=== PATIENT | female | born 1985 | race Two or more races ===

== ENCOUNTER 2019-01-17 22:40 | Emergency (ER) | payer SELFPAY ==
--- NOTE | 2019-01-17 22:47 | EDM.PDOC ---
ED HPI GENERAL MEDICAL PROBLEM - General Chief Complaint: General Stated Complaint: SOB 5 WEEKS PREG DIZZY LIGHTHEADED Time Seen by Provider: 01/17/19 22:46 - History of Present Illness INITIAL COMMENTS - FREE TEXT/NARRATIVE: 33-year-old female who is now 5 weeks she is a 5 para 31 miscarriage. She presents with episode of lightheadedness and dizziness. Patient was sitting on the sofa watching TV and felt warm and flushed and dizzy she felt her heart beating a little faster than normal this resolved on its own. She is feeling okay at the time of arrival to the emergency department. She otherwise has no medical problems. She will be establishing with an OB here at the [facility] and is ready on vitamins. She's had a little bit of cramping no contractions. - Related Data Allergies Allergy/AdvReac Type Severity Reaction Status Date / Time No Known Allergies Allergy Verified 01/17/19 22:54 Home Meds: Home Meds . [No Known Home Meds] 01/17/19 [History] ED ROS GENERAL - Review of Systems Review Of Systems: See Below Constitutional: Reports: No Symptoms HEENT: Reports: No Symptoms Respiratory: Reports: No Symptoms Cardiovascular: Reports: No Symptoms GI/Abdominal: Reports: No Symptoms : Reports: No Symptoms Musculoskeletal: Reports: No Symptoms Skin: Reports: No Symptoms Neurological: Reports: Dizziness. Denies: No Symptoms Psychiatric: Reports: No Symptoms ED EXAM - Physical Exam Exam: See Below Exam Limited By: No Limitations General Appearance: Alert, No Apparent Distress Eye Exam: Bilateral Eye: Normal Inspection Ears: Normal External Exam, Normal Canal, Hearing Grossly Normal, Normal TMs, Other (He has lots of cerumen in both canals both TMs visualized adequately) Nose: Normal Inspection, Normal Mucosa, No Blood Throat/Mouth: Normal Inspection, Normal Lips, Normal Teeth, Normal Gums, Normal Oropharynx, Normal Voice, No Airway Compromise Head: Atraumatic, Normocephalic Neck: Normal Inspection, Supple, Non-Tender, Full Range of Motion. No: Lymphadenopathy (L), Lymphadenopathy (R) Respiratory/Chest: No Respiratory Distress, Lungs Clear, Normal Breath Sounds Cardiovascular: Regular Rate, Rhythm, No Edema, No Murmur GI/Abdominal Exam: Normal Bowel Sounds, Soft, Non-Tender Back Exam: Normal Inspection. No: CVA Tenderness (L), CVA Tenderness (R) Extremities: Normal Inspection, No Pedal Edema Neurological: Alert, Oriented, Normal Cognition Course - Vital Signs Last Recorded V/S: Last Vital Signs Temp 36.3 C 01/17/19 22:51 Pulse 84 01/17/19 22:51 Resp 18 01/17/19 22:51 BP 154/75 H 01/17/19 22:51 Pulse Ox 100 01/17/19 22:51 - Orders/Labs/Meds Orders: Active Orders 24 hr Category Date Time Status PATIENT RETYPE [BBK] Routine Lab 01/18/19 00:10 Ordered Labs: Laboratory Tests 01/17/19 01/17/19 01/17/19 Range/Units 23:10 23:10 23:10 WBC 13.37 H (3.98-10.04) K/mm3 RBC 4.07 (3.98-5.22) M/mm3 Hgb 11.7 (11.2-15.7) gm/dl Hct 35.9 (34.1-44.9) % MCV 88.2 (79.4-94.8) fl MCH 28.7 (25.6-32.2) pg MCHC 32.6 (32.2-35.5) g/dl RDW Std Deviation 40.9 (36.4-46.3) fL Plt Count 320 (182-369) K/mm3 MPV 9.5 (9.4-12.3) fl Neutrophils % (Manual) 57 (40-60) % Band Neutrophils % 2 (0-10) % Lymphocytes % (Manual) 35 (20-40) % Atypical Lymphs % 0 % Monocytes % (Manual) 4 (2-10) % Eosinophils % (Manual) 2 (0.7-5.8) % Basophils % (Manual) 0 L (0.1-1.2) Toxic Granulation 1+ slight Platelet Estimate Adequate Plt Morphology Comment Normal RBC Morph Comment Normal Sodium 140 (136-145) mEq/L Potassium 3.3 L (3.5-5.1) mEq/L Chloride 103 (98-107) mEq/L Carbon Dioxide 26 (21-32) mEq/L Anion Gap 14.3 (5-15) BUN 13 (7-18) mg/dL Creatinine 0.7 (0.55-1.02) mg/dL Est Cr Clr Drug Dosing TNP Estimated GFR (MDRD) > 60 (>60) mL/min BUN/Creatinine Ratio 18.6 H (14-18) Glucose 157 H (74-106) mg/dL Calcium 9.1 (8.5-10.1) mg/dL Total Bilirubin 0.2 (0.2-1.0) mg/dL AST 19 (15-37) U/L ALT 30 (14-59) U/L Alkaline Phosphatase 85 (46-116) U/L Total Protein 7.3 (6.4-8.2) g/dl Albumin 3.6 (3.4-5.0) g/dl Globulin 3.7 gm/dL Albumin/Globulin Ratio 1.0 (1-2) HCG, Quant 1697.0 mIU/mL Urine Color (Yellow) Urine Appearance (Clear) Urine pH (5.0-8.0) Ur Specific [place] (1.005-1.030) Urine Protein (Negative) Urine Glucose (UA) (Negative) Urine Ketones (Negative) Urine Occult Blood (Negative) Urine Nitrite (Negative) Urine Bilirubin (Negative) Urine Urobilinogen (0.2-1.0) Ur Leukocyte Esterase (Negative) Urine RBC (0-5) /hpf Urine WBC (0-5) /hpf Ur Squamous Epith Cells (0-5) /hpf Urine Bacteria (FEW) /hpf Hyaline Casts (0-5) /lpf Urine Mucus (FEW) /hpf Blood Type Gel Antibody Screen 01/17/19 01/17/19 Range/Units 23:10 23:30 WBC (3.98-10.04) K/mm3 RBC (3.98-5.22) M/mm3 Hgb (11.2-15.7) gm/dl Hct (34.1-44.9) % MCV (79.4-94.8) fl MCH (25.6-32.2) pg MCHC (32.2-35.5) g/dl RDW Std Deviation (36.4-46.3) fL Plt Count (182-369) K/mm3 MPV (9.4-12.3) fl Neutrophils % (Manual) (40-60) % Band Neutrophils % (0-10) % Lymphocytes % (Manual) (20-40) % Atypical Lymphs % % Monocytes % (Manual) (2-10) % Eosinophils % (Manual) (0.7-5.8) % Basophils % (Manual) (0.1-1.2) Toxic Granulation Platelet Estimate Plt Morphology Comment RBC Morph Comment Sodium (136-145) mEq/L Potassium (3.5-5.1) mEq/L Chloride (98-107) mEq/L Carbon Dioxide (21-32) mEq/L Anion Gap (5-15) BUN (7-18) mg/dL Creatinine (0.55-1.02) mg/dL Est Cr Clr Drug Dosing Estimated GFR (MDRD) (>60) mL/min BUN/Creatinine Ratio (14-18) Glucose (74-106) mg/dL Calcium (8.5-10.1) mg/dL Total Bilirubin (0.2-1.0) mg/dL AST (15-37) U/L ALT (14-59) U/L Alkaline Phosphatase (46-116) U/L Total Protein (6.4-8.2) g/dl Albumin (3.4-5.0) g/dl Globulin gm/dL Albumin/Globulin Ratio (1-2) HCG, Quant mIU/mL Urine Color Yellow (Yellow) Urine Appearance Slt cloudy H (Clear) Urine pH 6.0 (5.0-8.0) Ur Specific [place] > or = 1.030 (1.005-1.030) Urine Protein Negative (Negative) Urine Glucose (UA) Negative (Negative) Urine Ketones Negative (Negative) Urine Occult Blood Negative (Negative) Urine Nitrite Negative (Negative) Urine Bilirubin Negative (Negative) Urine Urobilinogen 1.0 (0.2-1.0) Ur Leukocyte Esterase Trace H (Negative) Urine RBC 0-5 (0-5) /hpf Urine WBC 5-10 H (0-5) /hpf Ur Squamous Epith Cells 10-20 H (0-5) /hpf Urine Bacteria Moderate H (FEW) /hpf Hyaline Casts 0-5 (0-5) /lpf Urine Mucus Many H (FEW) /hpf Blood Type B POSITIVE Gel Antibody Screen Negative Meds: Medications Discontinued Medications Generic Name Dose Route Start Last Admin Trade Name Freq PRN Reason Stop Dose Admin Lactated Ringer's 1,000 mls @ 999 mls/hr 01/17/19 23:05 01/17/19 23:19 Ringers, Lactated IV 01/18/19 00:05 999 mls/hr .BOLUS ONE Administration Potassium Chloride 40 meq 01/18/19 00:22 01/18/19 00:31 Klor-Con M20 PO 01/18/19 00:23 40 meq ONETIME ONE Administration - Re-Assessments/Exams Free Text/Narrative Re-Assessment/Exam: 01/18/19 00:35 Patient has done fine here in the emergency department received a liter of fluid her potassium was little low so we'll give her 40 mEq oral before she goes home she like to go home and get some rest at this point. Departure - Departure Time of Disposition: 00:36 Disposition: Home, Self-Care 01 Clinical Impression: Episode of dizziness - Discharge Information Referrals: PCP,None [Primary Care Provider] - Forms: ED Department Discharge Additional Instructions: Return to emergency room with any questions problems or worsening symptoms. Follow-up with OB as scheduled. Push plenty of fluids. - My Orders Last 24 Hours: My Active Orders 01/18/19 00:10 PATIENT RETYPE [BBK] Routine - Assessment/Plan Last 24 Hours: My Active Orders 01/18/19 00:10 PATIENT RETYPE [BBK] Routine
[2019-01-17] MEDS ORDERED: Lactated Ringers 1,000 ML IV ONE (23:05)
[2019-01-18] MEDS ORDERED: Potassium Chloride 20 MEQ Tab.ER PO ONE (00:22)
== END 2019-01-18 00:42 | disposition home or self-care (01) ==
LOC: JD.ED 22:40
DX: O99.89 Other specified diseases and conditions complicating pregnancy, childbirth and the puerperium (principal); R42 Dizziness and giddiness; Z3A.01 Less than 8 weeks gestation of pregnancy
CPT/HCPCS: 36415; 80053; 81001; 84702; 85007; 85027; 86850; 86900; 86901; 96360; 99284; A9270; J7120; 99283

== ENCOUNTER 2019-03-06 23:45 | Emergency (ER) | payer OTHER, SELFPAY ==
--- NOTE | 2019-03-07 02:39 | EDM.PDOC ---
ED HPI GENERAL MEDICAL PROBLEM - General Chief Complaint: Respiratory Problem Stated Complaint: FLU SYMPTOMS/12 WKS Time Seen by Provider: 03/07/19 00:15 Source of Information: Reports: Patient History Limitations: Reports: No Limitations - History of Present Illness INITIAL COMMENTS - FREE TEXT/NARRATIVE: TRIAGE NOTE -- Pt has been having cold and flu symptoms for 4 days, nasal congestion, runny nose, sore throat, headache and chills, stated she had a elevated temp today. Took Tylenol and Robitussin 4 hours ago. [ End ] Above noted. Patient is 12 weeks . She is getting adequate care. She has had recurrent tonsillitis. No other risk factors are identified. Per primary complaint is her sore throat. 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 ED EXAM, GENERAL - Physical Exam Exam: See Below Exam Limited By: No Limitations General Appearance: Alert, WD/WN Eye Exam: Bilateral Eye: EOMI, PERRL Ears: Normal External Exam Nose: Normal Inspection Throat/Mouth: Other (Posterior pharynx is quite erythematous. Tonsils are enlarged. No asymmetry no exudate.) Head: Atraumatic, Normocephalic Neck: Normal Inspection, Supple Respiratory/Chest: No Respiratory Distress, Lungs Clear Cardiovascular: Regular Rate, Rhythm GI/Abdominal: Soft, Non-Tender Back Exam: Normal Inspection Extremities: Normal Inspection Neurological: Alert, Oriented Psychiatric: Normal Affect, Normal Mood Skin Exam: Warm, Dry Course - Vital Signs Text/Narrative:: Patient is positive for influenza B. Strep test is negative. However in light of the patient's history of tonsillitis and her really uncomfortable throat and enlarged tonsils she is being treated with Rocephin in the ER followed by Augmentin as outpatient. She is to report this visit to her field administrative assistant and arrange follow-up as directed. Last Recorded V/S: Last Vital Signs Temp 36.4 C 03/06/19 23:59 Pulse 79 03/06/19 23:59 Resp 18 03/06/19 23:59 BP 125/83 03/06/19 23:59 Pulse Ox 99 03/06/19 23:59 - Orders/Labs/Meds Orders: Active Orders 24 hr Category Date Time Status CULTURE STREP A CONFIRMATION [] Stat Lab 03/07/19 00:20 Results STREP SCRN A RAPID W CULT CONF [] Stat Lab 03/07/19 00:20 Results cefTRIAXone 1 GM with Lidocaine 1% 2.1 ML IM Med 03/07/19 02:45 Ordered cefTRIAXone [Rocephin] 1 gm Lidocaine 1% [Xylocaine 1%] 2.1 ml IM Q24H Medication Orders Ceftriaxone Sodium 1 gm/ (Lidocaine HCl 2.1 ml) 0 gm IM Q24H [facility] Meds: Medications Generic Name Dose Route Start Last Admin Trade Name Freq PRN Reason Stop Dose Admin Ceftriaxone Sodium 1 gm/ 0 gm 03/07/19 02:45 Lidocaine HCl 2.1 ml IM Q24H [facility] Departure - Departure Time of Disposition: 02:36 Disposition: Home, Self-Care 01 Condition: Good Clinical Impression: Tonsillitis with influenza, Influenza B, First trimester - Discharge Information Prescriptions: Amoxicillin/Potassium Clav [Augmentin 875-125 Tablet] 1 each PO Q12H #20 tablet Referrals: PCP,None [Primary Care Provider] - Additional Instructions: You tested positive for influenza B. You have been sick for about 4 days so an antiviral would not be of any benefit. You cannot take an antiviral as in any event. You have a history of chronic and recurrent tonsillitis and because your throat is so inflamed and your tonsils enlarged you are being treated for that. You received Rocephin in the emergency department and your prescription at home is for Augmentin. Report this visit to your field administrative assistant and arrange follow-up as directed. Return to ER for any worsening of symptoms, lethargy, decreased urine output, lack of brisk resolution of symptoms. Sepsis Event Note - Evaluation Sepsis Screening Result: No Definite Risk - Focused Exam Vital Signs: Vital Signs Temp Pulse Resp BP Pulse Ox 03/06/19 23:59 36.4 C 79 18 125/83 99 Date Exam was Performed: 03/07/19 Time Exam was Performed: 02:32 - My Orders Last 24 Hours: My Active Orders 03/07/19 02:45 cefTRIAXone 1 GM with Lidocaine 1% 2.1 ML IM cefTRIAXone [Rocephin] 1 gm Lidocaine 1% [Xylocaine 1%] 2.1 ml IM Q24H - Assessment/Plan Last 24 Hours: My Active Orders 03/07/19 02:45 cefTRIAXone 1 GM with Lidocaine 1% 2.1 ML IM cefTRIAXone [Rocephin] 1 gm Lidocaine 1% [Xylocaine 1%] 2.1 ml IM Q24H
[2019-03-07] MEDS ORDERED: cefTRIAXone 1 GM, Lidocaine 1% 2.1 ML IM SCH ×2 (02:45)
== END 2019-03-07 02:50 | disposition home or self-care (01) ==
LOC: JD.ED 23:45
DX: O99.511 Diseases of the respiratory system complicating pregnancy, first trimester (principal); J10.1 Influenza due to other identified influenza virus with other respiratory manifestations; Z3A.12 12 weeks gestation of pregnancy
CPT/HCPCS: 87077; 87081; 87430; 87804; 96372; 99283; J0696; J2001

== ENCOUNTER 2019-07-25 21:52 | Emergency (ER) | payer MEDICAID, OTHER ==
--- NOTE | 2019-07-25 22:29 | EDM.PDOC ---
ED HPI GENERAL MEDICAL PROBLEM - General Chief Complaint: Headache Stated Complaint: HEADACHE/HEART PALPATATIONS Time Seen by Provider: 07/25/19 22:06 Source of Information: Reports: Patient History Limitations: Reports: No Limitations - History of Present Illness INITIAL COMMENTS - FREE TEXT/NARRATIVE: Mrs. Smith is a 33-year-old woman with no chronic medical issues, but who is approximately 32 weeks gestation with her 5th , , with an CHRIST of 09/18/2019, who states that she was diagnosed with gestational diabetes and has been started on insulin, who now presents the ED stating that she developed intermittent rapid palpitations and a headache yesterday, 07/24/2019. She states that her headache is felt bitemporally and along the left side of her head. She is unable to describe its character. She states that she developed similar feeling headaches early in her , but that they went away. She does not otherwise have a history of headaches. She states that she has had some blurry vision on and off for the past 2 to 3 weeks, but denies recent nausea. She has been taking Tylenol for her headache. Here in the ED, the patient is found to be hemodynamically stable, afebrile, saturating 99% on room air. The patient denies recent fever, chills, sore throat, ear pain, nasal or sinus congestion, cough, dyspnea, chest pain, nausea, vomiting, constipation, diarrhea , abdominal pain, urinary symptoms, recent bloody bowel movements or black bowel movements, recent joint aches, headaches, or rashes. The patient's PCP is YOUSIF [facility]eno. Her Cement Mixer Driver is Dr. Yesenia Fong. 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 (x 1) : 5 Para: 3 Endocrine/Metabolic History: Reports: Diabetes, Gestational, Obesity/BMI 30+ - Past Surgical History Female Surgical History: Reports: Breast Implant Social & Family History - Family History Family Medical History: Noncontributory - Tobacco Use Smoking Status *Q: Never Smoker Second Hand Smoke Exposure: No - Caffeine Use Caffeine Use: Reports: None - Alcohol Use Alcohol Use History: Yes Alcohol Use Frequency: Rarely - Recreational Drug Use Recreational Drug Use: No - Living Situation & Occupation Living situation: Reports: , with Spouse, with Family (3 kids) Occupation: Unemployed ED ROS GENERAL - Review of Systems Review Of Systems: Comprehensive ROS is negative, except as noted in HPI. ED EXAM, GENERAL - Physical Exam Exam: See Below Exam Limited By: No Limitations General Appearance: Alert, WD/WN, No Apparent Distress Eye Exam: Bilateral Eye: EOMI, Normal Inspection, PERRL Ears: Normal External Exam, Normal Canal, Hearing Grossly Normal, Normal TMs Nose: Normal Inspection, Normal Mucosa, No Blood Throat/Mouth: Normal Inspection, Normal Lips, Normal Teeth, Normal Gums, Normal Oropharynx, Normal Voice, No Airway Compromise Head: Atraumatic, Normocephalic Neck: Normal Inspection, Supple, Non-Tender, Full Range of Motion Respiratory/Chest: No Respiratory Distress, Lungs Clear, Normal Breath Sounds, No Accessory Muscle Use Cardiovascular: Normal Peripheral Pulses, Regular Rate, Rhythm, No Gallop, No JVD, No Murmur, No Rub Peripheral Pulses: 4+: Radial (L), Radial (R) GI/Abdominal: Normal Bowel Sounds, Soft, Non-Tender, No Organomegaly, No Distention, No Abnormal Bruit, No Mass, Mass (Gravid uterus consistent with dates) (Female) Exam: Deferred Rectal (Female) Exam: Deferred Back Exam: Normal Inspection, Full Range of Motion, NT Extremities: Normal Inspection, Normal Range of Motion, No Pedal Edema, Normal Capillary Refill Neurological: Alert, Oriented, CN II-XII Intact, Normal Cognition, No Motor/ Sensory Deficits Psychiatric: Normal Affect Skin Exam: Warm, Dry, Intact, Normal Color, No Rash EKG INTERPRETATION EKG Date: 07/25/19 Time: 22:27 Rhythm: NSR Rate (Beats/Min): 93 [place]: Normal P-Wave: Present QRS: Normal ST-T: Normal QT: Normal Comparison: NA - No Prior EKG Course - Vital Signs Last Recorded V/S: Last Vital Signs Temp 36.8 C 07/25/19 22:01 Pulse 94 07/25/19 22:01 Resp 20 07/25/19 22:01 BP 126/90 07/25/19 22:01 Pulse Ox 99 07/25/19 22:01 - Orders/Labs/Meds Orders: Active Orders 24 hr Category Date Time Status EKG Documentation Completion [RC] STAT Care 07/25/19 22:21 Active Heart Rate [RC] Click to Edit Care 07/25/19 22:23 Active Labs: Laboratory Tests 07/25/19 07/25/19 Range/Units 22:40 22:40 WBC 11.79 H (3.98-10.04) K/mm3 RBC 3.71 L (3.98-5.22) M/mm3 Hgb 10.7 L (11.2-15.7) gm/dl Hct 33.2 L (34.1-44.9) % MCV 89.5 (79.4-94.8) fl MCH 28.8 (25.6-32.2) pg MCHC 32.2 (32.2-35.5) g/dl RDW Std Deviation 42.4 (36.4-46.3) fL Plt Count 252 (182-369) K/mm3 MPV 10.2 (9.4-12.3) fl Neutrophils % (Manual) 64 H (40-60) % Band Neutrophils % 0 (0-10) % Lymphocytes % (Manual) 28 (20-40) % Atypical Lymphs % 0 % Monocytes % (Manual) 5 (2-10) % Eosinophils % (Manual) 3 (0.7-5.8) % Basophils % (Manual) 0 L (0.1-1.2) Platelet Estimate Adequate RBC Morph Comment Normal Sodium 138 (136-145) mEq/L Potassium 3.6 (3.5-5.1) mEq/L Chloride 106 (98-107) mEq/L Carbon Dioxide 22 (21-32) mEq/L Anion Gap 13.6 (5-15) BUN 13 (7-18) mg/dL Creatinine 0.6 (0.55-1.02) mg/dL Est Cr Clr Drug Dosing 135.79 mL/min Estimated GFR (MDRD) > 60 (>60) mL/min BUN/Creatinine Ratio 21.7 H (14-18) Glucose 128 H (74-106) mg/dL Calcium 9.2 (8.5-10.1) mg/dL Magnesium 1.6 L (1.8-2.4) mg/dl Total Bilirubin 0.1 L (0.2-1.0) mg/dL AST 12 L (15-37) U/L ALT 21 (14-59) U/L Alkaline Phosphatase 110 (46-116) U/L Total Protein 6.4 (6.4-8.2) g/dl Albumin 2.5 L (3.4-5.0) g/dl Globulin 3.9 gm/dL Albumin/Globulin Ratio 0.6 L (1-2) TSH 3rd Generation 1.161 (0.358-3.74) uIU/mL Meds: Medications Discontinued Medications Generic Name Dose Route Start Last Admin Trade Name Freq PRN Reason Stop Dose Admin Acetaminophen 650 mg 07/25/19 23:57 07/26/19 00:00 Tylenol PO 07/25/19 23:58 650 mg NOW ONE Administration Magnesium Sulfate 2 gm/ Premix 50 mls @ 25 mls/hr 07/25/19 23:36 07/25/19 23: 53 IV 07/26/19 00:01 Not Given ONETIME ONE - Re-Assessments/Exams Free Text/Narrative Re-Assessment/Exam: 07/25/19 22:24 As above, the patient has been experiencing intermittent rapid palpitations and a headache since yesterday. She is not experiencing palpitations at this time, and her case monitor reflects a normal sinus rhythm. I have ordered a work -up that includes blood work and an ECG. With respect to her headache, her neurologic examination is completely normal, and that, combined with her , essentially disqualifies her for an emergency CT scan of her head. Lastly, although the patient has no complaints of abdominal pain or vaginal bleeding, I have ordered heart tones. 07/25/19 22:45 heart tones are 136 bpm. 07/25/19 23:37 The patient's CBC is remarkable for a WBC count elevated at 11.79, but with 0% bandemia. Her H/H is mildly depressed at 10.7/33.2, with the remainder of her CBC being unremarkable. Her CMP is remarkable for a blood glucose elevated at 128, with the remainder of her CMP being unremarkable. Her magnesium level is depressed at 1.6. Her TSH is within normal limits at 1.161. Based on the above, I have ordered a 2 g Mg-rider. 07/25/19 23:57 Lab results discussed with the patient. The patient does not want to wait to get the Mg-rider, and she is upset that her is not permitted back. It seems that she does not believe that she needs the magnesium; she stated that she had lab work done last week, and no one told her that her magnesium was low then. Of course, I have no idea what labs were even checked last week - we do not have access to the [place] lab results. She asked if she could replace her magnesium orally, and I explained that I would not be able to tell her how much oral magnesium she would need to take in order to replace her serum magnesium deficit, and that oral magnesium tends to cause diarrhea, which is why we replace it by IV in the ED. The patient stated that she would prefer to follow- up with her Commercial Loan Coordinator as opposed to getting the IV magnesium here, therefore I will cancel the order. The patient requested Tylenol for her headache, which she will be given. I am told that because the patient is over 20 weeks gestation, even though she does not have an OB issue, she is to go from here to OB. Departure - Departure Time of Disposition: 00:02 Disposition: Home, Self-Care 01 Condition: Good Clinical Impression: Headache, Rapid palpitations, Third trimester - Discharge Information *PRESCRIPTION DRUG MONITORING PROGRAM REVIEWED*: Not Applicable *COPY OF PRESCRIPTION DRUG MONITORING REPORT IN PATIENT ANTOINETTE: Not Applicable Instructions: Third Trimester of , [id number], Palpitations, Easy-to -Read, General Headache Without Cause, [id number] Referrals: Melissa Reid PA-C [Ordering Only Provider] - Yesenia Fong MD [Physician] - Forms: ED Department Discharge Additional Instructions: You were seen in the emergency room for intermittent rapid palpitations and a headache since yesterday. Work-up in the ER included blood work, heart tones, and an ECG. Your work-up found your magnesium level to be low at 1.6. Replacement IV magnesium was recommended, but declined. The remainder of your work-up was unremarkable. No cardiac abnormalities were found. As discussed, the only safe medicine that you may take for your headache is over -the-counter acetaminophen (Tylenol). We recommend that you follow-up with your Commercial Loan Coordinator, Dr. Yesenia Fong, at the next available appointment. If any other problems, please do not hesitate to return to the ER. Sepsis Event Note - Evaluation Sepsis Screening Result: No Definite Risk - Focused Exam Vital Signs: Vital Signs Temp Pulse Resp BP Pulse Ox 07/25/19 22:01 36.8 C 94 20 126/90 99 Date Exam was Performed: 07/26/19 Time Exam was Performed: 00:43 - My Orders Last 24 Hours: My Active Orders 07/25/19 22:21 EKG Documentation Completion [RC] STAT 07/25/19 22:23 Heart Rate [RC] Click to Edit - Assessment/Plan Last 24 Hours: My Active Orders 07/25/19 22:21 EKG Documentation Completion [RC] STAT 07/25/19 22:23 Heart Rate [RC] Click to Edit
[2019-07-25] MEDS ORDERED: Magnesium Sulfate/Water 2 GM in Premix Bag 1 BAG IV ONE (23:36)
[2019-07-25] MEDS ORDERED: Acetaminophen 325 MG Tab PO ONE (23:57)
== END 2019-07-26 00:20 | disposition home or self-care (01) ==
LOC: JD.ED 21:52
DX: O99.89 Other specified diseases and conditions complicating pregnancy, childbirth and the puerperium (principal); R51 Headache; R00.2 Palpitations; Z88.6 Allergy status to analgesic agent; O99.213 Obesity complicating pregnancy, third trimester; Z68.42 Body mass index [BMI] 45.0-49.9, adult; Z3A.32 32 weeks gestation of pregnancy
CPT/HCPCS: 36415; 80053; 83735; 84443; 85007; 85027; 93005; 99285; A9270; 93010; 99282

== ENCOUNTER 2019-09-03 07:07 | Inpatient (IN) | payer MEDICAID, OTHER ==
[2019-09-03] MEDS ORDERED: Sodium Chloride 0.9% 10 ML Syringe FLUSH PRN (07:21)
[2019-09-03] MEDS ORDERED: Nalbuphine 10 MG/ML Syringe IVPUSH PRN (07:21)
[2019-09-03] MEDS ORDERED: Misoprostol 25 MCG (1/4 of 100 MCG) Tab VAG ONE (07:30)
[2019-09-03] MEDS ORDERED: Lactated Ringers 1,000 ML IV SCH (07:30)
[2019-09-03] MEDS ORDERED: Misoprostol 25 MCG (1/4 of 100 MCG) Tab ONE (08:01)
[2019-09-03] MEDS ORDERED: diphenhydrAMINE 50 MG/ML SDV IVPUSH PRN (10:11)
[2019-09-03] MEDS ORDERED: ePHEDrine 50 MG/ML SDV IVPUSH PRN (10:11)
--- NOTE | 2019-09-03 10:51 | PCM.PREANE ---
Preanesthetic Assessment - Procedure Proposed Procedure: juliette - Anesthesia/Transfusion/Family Hx Anesthesia History: Prior Anesthesia Without Reaction Family History of Anesthesia Reaction: No Transfusion History: No Prior Transfusion(s) - Review of Systems General: No Symptoms Pulmonary: No Symptoms Cardiovascular: No Symptoms Gastrointestinal: No Symptoms Neurological: No Symptoms Other: Reports: Diabetes (gestational) - Physical Assessment Vital Signs: Last Vital Signs Temp 97.6 F 09/03/19 07:59 Pulse 88 09/03/19 07:59 Resp BP 158/96 H 09/03/19 07:59 Pulse Ox Height: 5 ft 8 in Weight: 139.888 kg ASA Class: 3 Mental Status: Alert & Oriented x3 Airway Class: Mallampati = 1 Dentition: Reports: Normal Dentition Thyro-Mental Finger Breadths: 3 Mouth Opening Finger Breadths: 3 ROM/Head Extension: Full Lungs: Clear to Auscultation, Normal Respiratory Effort Cardiovascular: Regular Rate, Regular Rhythm - Lab Values: Laboratory Last Values WBC 12.07 K/mm3 (3.98-10.04) H 09/03/19 07:40 RBC 4.02 M/mm3 (3.98-5.22) 09/03/19 07:40 Hgb 11.7 gm/dl (11.2-15.7) 09/03/19 07:40 Hct 36.0 % (34.1-44.9) 09/03/19 07:40 MCV 89.6 fl (79.4-94.8) 09/03/19 07:40 MCH 29.1 pg (25.6-32.2) 09/03/19 07:40 MCHC 32.5 g/dl (32.2-35.5) 09/03/19 07:40 RDW Std Deviation 43.2 fL (36.4-46.3) 09/03/19 07:40 Plt Count 247 K/mm3 (182-369) 09/03/19 07:40 MPV 11.1 fl (9.4-12.3) 09/03/19 07:40 Neut % (Auto) 64.6 % (34.0-71.1) 09/03/19 07:40 Lymph % (Auto) 26.5 % (19.3-51.7) 09/03/19 07:40 [place] % (Auto) 7.2 % (4.7-12.5) 09/03/19 07:40 Eos % (Auto) 0.8 (0.7-5.8) 09/03/19 07:40 Baso % (Auto) 0.2 % (0.1-1.2) 09/03/19 07:40 Neut # (Auto) 7.80 K/mm3 (1.56-6.13) H 09/03/19 07:40 Lymph # (Auto) 3.20 K/mm3 (1.18-3.74) 09/03/19 07:40 [place] # (Auto) 0.87 K/mm3 (0.24-0.36) H 09/03/19 07:40 Eos # (Auto) 0.10 K/mm3 (0.04-0.36) 09/03/19 07:40 Baso # (Auto) 0.02 K/mm3 (0.01-0.08) 09/03/19 07:40 BUN 11 mg/dL (7-18) 09/03/19 07:40 Creatinine 0.6 mg/dL (0.55-1.02) 09/03/19 07:40 Est Cr Clr Drug Dosing 135.79 mL/min 09/03/19 07:40 Estimated GFR (MDRD) > 60 mL/min (>60) 09/03/19 07:40 Uric Acid 4.8 mg/dL (2.6-6.0) 09/03/19 07:40 AST 14 U/L (15-37) L 09/03/19 07:40 ALT 14 U/L (14-59) 09/03/19 07:40 Lactate Dehydrogenase 150 U/L (81-234) 09/03/19 07:40 SARS-CoV-2 RNA (RT-PCR) Negative (NEGATIVE) 09/03/19 08:55 - Allergies Allergies/Adverse Reactions: Allergies Allergy/AdvReac Type Severity Reaction Status Date / Time ketorolac [From Toradol] Allergy Severe Facial Verified 09/03/19 08:39 Swelling - Blood Blood Available: No - Acknowledgements Anesthesia Type Planned: Epidural Pt an Appropriate Candidate for the Planned Anesthesia: Yes Alternatives and Risks of Anesthesia Discussed w Pt/Guardian: Yes Pt/Guardian Understands and Agrees with Anesthesia Plan: Yes PreAnesthesia Questionnaire - Past Health History Medical/Surgical History: Denies Medical/Surgical History Cardiovascular History: Reports: None Respiratory History: Reports: None Gastrointestinal History: Reports: GERD (with preg- much better now) 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: , Spontaneous : 5 Para: 3 Endocrine/Metabolic History: Reports: Diabetes, Gestational, Obesity/BMI 30+ Oncologic (Cancer) History: Reports: None - Past Surgical History Female Surgical History: Reports: Breast Implant - SUBSTANCE USE Smoking Status *Q: Never Smoker Tobacco Use Within Last Twelve Months: No Second Hand Smoke Exposure: No Days Per Week of Alcohol Use: 0 Recreational Drug Use History: No - HOME MEDS Home Medications: Home Meds Insulin Detemir [Levemir] 16 units SUBCUT BEDTIME 07/25/19 [History] Vits #93/Iron Fum/FA [ Formula Tablet] 1 tab PO DAILY 07/25/19 [History] Omeprazole 20 mg PO DAILY #60 tablet. 08/06/19 [Rx] - CURRENT (IN HOUSE) MEDS Current Meds: Current Medications Diphenhydramine HCl (Benadryl) 25 mg IVPUSH Q6H PRN PRN Reason: pruritis Ephedrine Sulfate (Ephedrine Sulfate) 5 mg IVPUSH ASDIRECTED PRN PRN Reason: Hypotension Fentanyl (Sublimaze) 100 mcg EPIDUR Q3H PRN PRN Reason: Pain Fentanyl/Bupivacaine HCl (Fentanyl/Bupivacaine/Ns 2 Mcg-0.125% 100 Ml) 100 ml EPIDUR ASDIRECTED PRN PRN Reason: Pain Lactated Ringer's (Ringers, Lactated) 1,000 mls @ 100 mls/hr IV ASDIRECTED GERMAINE Oxytocin/Lactated Ringer's (Pitocin In Lr 10 Units/1,000 Ml) 10 unit in 1,000 mls @ 12 mls/hr IV TITRATE GERMAINE; Protocol Lactated Ringer's (Ringers, Lactated) 1,000 mls @ 40 mls/hr IV ASDIRECTED GERMAINE Nalbuphine HCl (Nubain) 10 mg IVPUSH Q2H PRN PRN Reason: Pain Sodium Chloride (Saline Flush) 10 ml FLUSH ASDIRECTED PRN PRN Reason: Keep Vein Open Discontinued Medications Misoprostol (Cytotec) 50 mcg VAG ONETIME ONE Stop: 09/03/19 07:31 Last Admin: 09/03/19 08:00 Dose: 50 mcg Documented by: Misoprostol (Cytotec) Confirm Administered Dose 25 mcg .ROUTE .[facility] ONE Stop: 09/03/19 08:02 Last Admin: 09/03/19 10:16 Dose: Not Given Documented by:
[2019-09-03] MEDS: Lactated Ringers 1,000 ML IV SCH ×2 (12:07→13:38)
[2019-09-03] MEDS: Oxytocin/Lactated Ringers 10 UNIT/1,000 ML BAG IV SCH (12:07)
[2019-09-03] MEDS: Bupivacaine/fentaNYL/NS 100 ML Bag EPIDUR PRN ×2 (13:55→22:00)
[2019-09-03] MEDS: fentaNYL 100 MCG/2 ML SDV EPIDUR PRN ×2 (13:56→22:36)
--- NOTE | 2019-09-03 17:00 | PCM.LDHP ---
L&D History of Present Illness - General Date of Service: 09/03/19 Admit Problem/Dx: Patient Status Order with Admit Dx/Problem 09/03/19 07:21 Patient Status [ADT] Routine Admission Diagnosis/Problem Admission Diagnosis/Problem Source of Information: Patient - History of Present Illness Introduction:: 33 year old at 38w here for induction of labor for poorly controlled gestational diabetes. Here for induction of labor Pain Score: 8 - Related Data Allergies/Adverse Reactions: Allergies Allergy/AdvReac Type Severity Reaction Status Date / Time ketorolac [From Toradol] Allergy Severe Facial Verified 09/03/19 08:39 Swelling Home Medications: Home Meds Insulin Detemir [Levemir] 16 units SUBCUT BEDTIME 07/25/19 [History] Vits #93/Iron Fum/FA [ Formula Tablet] 1 tab PO DAILY 07/25/19 [History] Omeprazole 20 mg PO DAILY #60 tablet. 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 Endocrine/Metabolic History: Reports: Diabetes, Gestational, Obesity/BMI 30+ Oncologic (Cancer) History: Reports: None - Past Surgical History Female Surgical History: Reports: Breast Implant Social & Family History - Family History Family Medical History: Noncontributory - Tobacco Use Smoking Status *Q: Never Smoker Second Hand Smoke Exposure: No - Caffeine Use Caffeine Use: Reports: None - Alcohol Use Days Per Week of Alcohol Use: 0 - Recreational Drug Use Recreational Drug Use: No - Living Situation & Occupation Living situation: Reports: , with Spouse, with Family (3 kids) Occupation: Unemployed H&P Review of Systems - Review of Systems: Review Of Systems: See Below General: Reports: No Symptoms HEENT: Reports: No Symptoms Pulmonary: Reports: No Symptoms Cardiovascular: Reports: No Symptoms Gastrointestinal: Reports: No Symptoms Genitourinary: Reports: No Symptoms Musculoskeletal: Reports: No Symptoms Skin: Reports: No Symptoms Psychiatric: Reports: No Symptoms Neurological: Reports: No Symptoms Hematologic/Lymphatic: Reports: No Symptoms Immunologic: Reports: No Symptoms L&D Exam - Exam Exam: See Below - Vital Signs Vital Signs: Last Vital Signs Temp 36.4 C 09/03/19 07:59 Pulse 88 09/03/19 07:59 Resp BP 158/96 H 09/03/19 07:59 Pulse Ox Weight: 139.888 kg - OB Specific Contraction Intensity: Moderate Movement: Active Heart Tones: Present Heart Rate (FHR) Variability: Moderate (6-25 bmp) Presentation: Vertex - Brian Score Brian Score Cervix Position: Midposition Brian Score Consistency: Soft Brian Score Effacement: 51-70% Brian Score Dilation: 1-2 cm Brian Score 's Station: -3 Brian Score Total: 6 - Exam General: Alert, Oriented HEENT: PERRLA, Conjunctiva Clear, EACs Clear, EOMI, Hearing Intact, Mucosa Moist & [place], Nares Patent, Normal Nasal Septum, Posterior Pharynx Clear, TMs Clear Neck: Supple, Trachea Midline Lungs: Clear to Auscultation, Normal Respiratory Effort Cardiovascular: Regular Rate, Regular Rhythm GI/Abdominal Exam: Normal Bowel Sounds, Soft, Non-Tender, No Organomegaly, No Distention, No Abnormal Bruit, No Mass, Pelvis Stable Back Exam: Normal Inspection, Full Range of Motion Extremities: Normal Inspection, Normal Range of Motion, Non-Tender, No Pedal Edema, Normal Capillary Refill Skin: Warm, Dry, Intact Neurological: Cranial Nerves Intact, Reflexes Equal Bilateral Psychiatric: Alert, Normal Affect, Normal Mood - Patient Data Lab Results Last 24 hrs: Laboratory Results - last 24 hr 09/03/19 09/03/19 09/03/19 Range/Units 07:40 07:40 08:55 WBC 12.07 H (3.98-10.04) K/mm3 RBC 4.02 (3.98-5.22) M/mm3 Hgb 11.7 (11.2-15.7) gm/dl Hct 36.0 (34.1-44.9) % MCV 89.6 (79.4-94.8) fl MCH 29.1 (25.6-32.2) pg MCHC 32.5 (32.2-35.5) g/dl RDW Std Deviation 43.2 (36.4-46.3) fL Plt Count 247 (182-369) K/mm3 MPV 11.1 (9.4-12.3) fl Neut % (Auto) 64.6 (34.0-71.1) % Lymph % (Auto) 26.5 (19.3-51.7) % [place] % (Auto) 7.2 (4.7-12.5) % Eos % (Auto) 0.8 (0.7-5.8) Baso % (Auto) 0.2 (0.1-1.2) % Neut # (Auto) 7.80 H (1.56-6.13) K/mm3 Lymph # (Auto) 3.20 (1.18-3.74) K/mm3 [place] # (Auto) 0.87 H (0.24-0.36) K/mm3 Eos # (Auto) 0.10 (0.04-0.36) K/mm3 Baso # (Auto) 0.02 (0.01-0.08) K/mm3 BUN 11 (7-18) mg/dL Creatinine 0.6 (0.55-1.02) mg/dL Est Cr Clr Drug Dosing 135.79 mL/min Estimated GFR (MDRD) > 60 (>60) mL/min POC Glucose (70-105) mg/dL Uric Acid 4.8 (2.6-6.0) mg/dL AST 14 L (15-37) U/L ALT 14 (14-59) U/L Lactate Dehydrogenase 150 (81-234) U/L Ur Random Creatinine (30.0-125.0) mg/dL U Random Total Protein (0.0-11.8) mg/dL Protein/Creatinin Ratio SARS-CoV-2 RNA (RT-PCR) Negative (NEGATIVE) 09/03/19 09/03/19 Range/Units 09:30 15:52 WBC (3.98-10.04) K/mm3 RBC (3.98-5.22) M/mm3 Hgb (11.2-15.7) gm/dl Hct (34.1-44.9) % MCV (79.4-94.8) fl MCH (25.6-32.2) pg MCHC (32.2-35.5) g/dl RDW Std Deviation (36.4-46.3) fL Plt Count (182-369) K/mm3 MPV (9.4-12.3) fl Neut % (Auto) (34.0-71.1) % Lymph % (Auto) (19.3-51.7) % [place] % (Auto) (4.7-12.5) % Eos % (Auto) (0.7-5.8) Baso % (Auto) (0.1-1.2) % Neut # (Auto) (1.56-6.13) K/mm3 Lymph # (Auto) (1.18-3.74) K/mm3 [place] # (Auto) (0.24-0.36) K/mm3 Eos # (Auto) (0.04-0.36) K/mm3 Baso # (Auto) (0.01-0.08) K/mm3 BUN (7-18) mg/dL Creatinine (0.55-1.02) mg/dL Est Cr Clr Drug Dosing mL/min Estimated GFR (MDRD) (>60) mL/min POC Glucose 77 (70-105) mg/dL Uric Acid (2.6-6.0) mg/dL AST (15-37) U/L ALT (14-59) U/L Lactate Dehydrogenase (81-234) U/L Ur Random Creatinine 55.0 (30.0-125.0) mg/dL U Random Total Protein < 6.0 (0.0-11.8) mg/dL Protein/Creatinin Ratio TNP SARS-CoV-2 RNA (RT-PCR) (NEGATIVE) Result Diagrams: 09/03/19 07:40 09/03/19 07:40 Problem List Initiated/Reviewed/Updated: Yes Orders Last 24hrs: Active Orders 24 hr Category Date Time Status Patient Status [ADT] Routine ADT 09/03/19 07:21 Active Activity as Tolerated [RC] PFP Care 09/03/19 07:21 Active Blood Glucose Check, Bedside [RC] Q4HR Care 09/03/19 07:21 Active Communication Order [RC] ASDIRECTED Care 09/03/19 07:21 Active Communication Order [RC] ASDIRECTED Care 09/03/19 07:21 Active Communication Order [RC] ASDIRECTED Care 09/03/19 07:21 Active Communication Order [RC] ASDIRECTED Care 09/03/19 07:21 Active Heart Tones [RC] ASDIRECTED Care 09/03/19 07:22 Active Monitoring [RC] INTERMITTENT Care 09/03/19 07:21 Active Non Stress Test [RC] PER UNIT ROUTINE Care 09/03/19 07:21 Active Notify Provider [RC] ASDIRECTED Care 09/03/19 07:21 Active Notify Provider [RC] ASDIRECTED Care 09/03/19 10:11 Active Notify Provider [RC] PFP Care 09/03/19 07:21 Active Notify Provider [RC] PRN Care 09/03/19 07:21 Active Peripheral IV Care [RC] . DIRECTED Care 09/03/19 07:22 Active Vaginal Exam [RC] ASDIRECTED Care 09/03/19 07:21 Active Consistent Carbohydrate Diet [DIET] Diet 09/03/19 Lunch Active CBC W/O DIFF,HEMOGRAM [HEME] AM Lab 09/04/19 05:11 Ordered RAPID PLASMA REAGIN,RPR [CHEM] Routine Lab 09/03/19 07:40 Received TYPE AND SCREEN [BBK] AM Lab 09/04/19 05:11 Ordered Bupivacaine/fentaNYL/NS [fentaNYL/Bupivacaine/NS 2 MCG- Med 09/03/19 10:11 Active 0.125% 100 ML] 100 ml EPIDUR ASDIRECTED PRN Lactated Ringers [Ringers, Lactated] 1,000 ml Med 09/03/19 07:30 Active IV ASDIRECTED Lactated Ringers [Ringers, Lactated] 1,000 ml Med 09/03/19 07:30 Active IV ASDIRECTED Nalbuphine [Nubain] Med 09/03/19 07:21 Active 10 mg IVPUSH Q2H PRN Oxytocin/Lactated Ringers [Pitocin in LR 10 Units/1,000 Med 09/03/19 07:30 Active ML] 10 unit in 1,000 ml IV TITRATE Sodium Chloride 0.9% [Saline Flush] Med 09/03/19 07:21 Active 10 ml FLUSH ASDIRECTED PRN diphenhydrAMINE [Benadryl] Med 09/03/19 10:11 Active 25 mg IVPUSH Q6H PRN ePHEDrine [ePHEDrine sulfate] Med 09/03/19 10:11 Active 5 mg IVPUSH ASDIRECTED PRN fentaNYL [Sublimaze] Med 09/03/19 10:11 Active 100 mcg EPIDUR Q3H PRN Electronic Heart Tones Ext w TOCO [WOMSER] Ot 09/03/19 07:21 Ordered Routine Electronic Heart Tones Internal [WOMSER] Per Unit Ot 09/03/19 07:21 Ordered Routine PIH Panel [OM.PC] Stat Ot 09/03/19 09:18 Ordered Peripheral IV Insertion Adult [OM.PC] Routine Ot 09/03/19 07:21 Ordered Peripheral IV Insertion Adult [OM.PC] Routine Ot 09/03/19 07:21 Ordered Medication Orders Diphenhydramine HCl (Benadryl) 25 mg IVPUSH Q6H PRN PRN Reason: pruritis Ephedrine Sulfate (Ephedrine Sulfate) 5 mg IVPUSH ASDIRECTED PRN PRN Reason: Hypotension Fentanyl (Sublimaze) 100 mcg EPIDUR Q3H PRN PRN Reason: Pain Last Admin: 09/03/19 13:56 Dose: 100 mcg Documented by: [id number] Fentanyl/Bupivacaine HCl (Fentanyl/Bupivacaine/Ns 2 Mcg-0.125% 100 Ml) 100 ml EPIDUR ASDIRECTED PRN PRN Reason: Pain Last Admin: 09/03/19 13:55 Dose: 100 ml Documented by: [email or web address] Lactated Ringer's (Ringers, Lactated) 1,000 mls @ 100 mls/hr IV ASDIRECTED GERMAINE Last Admin: 09/03/19 13:38 Dose: 999 mls/hr Documented by: [id number] Infusion: 09/03/19 13:38 Dose: 999 mls/hr Documented by: [id number] Infusion: 09/03/19 13:00 Dose: 999 mls/hr Documented by: [id number] Admin: 09/03/19 12:07 Dose: 100 mls/hr Documented by: [id number] Oxytocin/Lactated Ringer's (Pitocin In Lr 10 Units/1,000 Ml) 10 unit in 1,000 mls @ 12 mls/hr IV TITRATE GERMAINE; Protocol Last Titration: 09/03/19 14:30 Dose: 10 munits/min, 60 mls/hr Documented by: [id number] Titration: 09/03/19 13:30 Dose: 8 munits/min, 48 mls/hr Documented by: [id number] Titration: 09/03/19 13:00 Dose: 6 munits/min, 36 mls/hr Documented by: [id number] Titration: 09/03/19 12:32 Dose: 4 munits/min, 24 mls/hr Documented by: [id number] Admin: 09/03/19 12:07 Dose: 2 munits/min, 12 mls/hr Documented by: [id number] Lactated Ringer's (Ringers, Lactated) 1,000 mls @ 40 mls/hr IV ASDIRECTED GERMAINE Nalbuphine HCl (Nubain) 10 mg IVPUSH Q2H PRN PRN Reason: Pain Sodium Chloride (Saline Flush) 10 ml FLUSH ASDIRECTED PRN PRN Reason: Keep Vein Open Assessment/Plan Comment:: Here for induction. Slightly elevated blood pressures - labs pending. GLucose checks q2 hours. Anesthesia per patient request.
--- NOTE | 2019-09-03 17:03 | PCM.PNLD ---
Labor Progress Note - VS & Meds Vital Signs: Last Vital Signs Temp 36.4 C 09/03/19 07:59 Pulse 88 09/03/19 07:59 Resp BP 158/96 H 09/03/19 07:59 Pulse Ox Active Medications: Current Medications Diphenhydramine HCl (Benadryl) 25 mg IVPUSH Q6H PRN PRN Reason: pruritis Ephedrine Sulfate (Ephedrine Sulfate) 5 mg IVPUSH ASDIRECTED PRN PRN Reason: Hypotension Fentanyl (Sublimaze) 100 mcg EPIDUR Q3H PRN PRN Reason: Pain Last Admin: 09/03/19 13:56 Dose: 100 mcg Documented by: Fentanyl/Bupivacaine HCl (Fentanyl/Bupivacaine/Ns 2 Mcg-0.125% 100 Ml) 100 ml EPIDUR ASDIRECTED PRN PRN Reason: Pain Last Admin: 09/03/19 13:55 Dose: 100 ml Documented by: Lactated Ringer's (Ringers, Lactated) 1,000 mls @ 100 mls/hr IV ASDIRECTED GERMAINE Last Admin: 09/03/19 13:38 Dose: 999 mls/hr Documented by: Oxytocin/Lactated Ringer's (Pitocin In Lr 10 Units/1,000 Ml) 10 unit in 1,000 mls @ 12 mls/hr IV TITRATE GERMAINE; Protocol Last Titration: 09/03/19 14:30 Dose: 10 munits/min, 60 mls/hr Documented by: Lactated Ringer's (Ringers, Lactated) 1,000 mls @ 40 mls/hr IV ASDIRECTED GERMAINE Nalbuphine HCl (Nubain) 10 mg IVPUSH Q2H PRN PRN Reason: Pain Sodium Chloride (Saline Flush) 10 ml FLUSH ASDIRECTED PRN PRN Reason: Keep Vein Open Discontinued Medications Misoprostol (Cytotec) 50 mcg VAG ONETIME ONE Stop: 09/03/19 07:31 Last Admin: 09/03/19 08:00 Dose: 50 mcg Documented by: Misoprostol (Cytotec) Confirm Administered Dose 25 mcg .ROUTE .[facility] ONE Stop: 09/03/19 08:02 Last Admin: 09/03/19 10:16 Dose: Not Given Documented by: - Uterine Contractions Contraction Intensity: Moderate - Monitoring Heart Rate (FHR) Variability: Moderate (6-25 bmp) - Vaginal Exam Dilation (cm): 1.5 Effacement (Percent): 50 Station: -3 - Labor Progress (Free Text) Labor Progress: AROM clear fluid.
--- NOTE | 2019-09-03 17:12 | PCM.PNLD ---
Labor Progress Note - VS & Meds Vital Signs: Last Vital Signs Temp 36.4 C 09/03/19 07:59 Pulse 88 09/03/19 07:59 Resp BP 158/96 H 09/03/19 07:59 Pulse Ox Active Medications: Current Medications Diphenhydramine HCl (Benadryl) 25 mg IVPUSH Q6H PRN PRN Reason: pruritis Ephedrine Sulfate (Ephedrine Sulfate) 5 mg IVPUSH ASDIRECTED PRN PRN Reason: Hypotension Fentanyl (Sublimaze) 100 mcg EPIDUR Q3H PRN PRN Reason: Pain Last Admin: 09/03/19 13:56 Dose: 100 mcg Documented by: Fentanyl/Bupivacaine HCl (Fentanyl/Bupivacaine/Ns 2 Mcg-0.125% 100 Ml) 100 ml EPIDUR ASDIRECTED PRN PRN Reason: Pain Last Admin: 09/03/19 13:55 Dose: 100 ml Documented by: Lactated Ringer's (Ringers, Lactated) 1,000 mls @ 100 mls/hr IV ASDIRECTED GERMAINE Last Admin: 09/03/19 13:38 Dose: 999 mls/hr Documented by: Oxytocin/Lactated Ringer's (Pitocin In Lr 10 Units/1,000 Ml) 10 unit in 1,000 mls @ 12 mls/hr IV TITRATE GERMAINE; Protocol Last Titration: 09/03/19 14:30 Dose: 10 munits/min, 60 mls/hr Documented by: Lactated Ringer's (Ringers, Lactated) 1,000 mls @ 40 mls/hr IV ASDIRECTED GERMAINE Nalbuphine HCl (Nubain) 10 mg IVPUSH Q2H PRN PRN Reason: Pain Sodium Chloride (Saline Flush) 10 ml FLUSH ASDIRECTED PRN PRN Reason: Keep Vein Open Discontinued Medications Misoprostol (Cytotec) 50 mcg VAG ONETIME ONE Stop: 09/03/19 07:31 Last Admin: 09/03/19 08:00 Dose: 50 mcg Documented by: Misoprostol (Cytotec) Confirm Administered Dose 25 mcg .ROUTE .[facility] ONE Stop: 09/03/19 08:02 Last Admin: 09/03/19 10:16 Dose: Not Given Documented by: - Uterine Contractions Contraction Intensity: Moderate - Monitoring Heart Rate (FHR) Variability: Moderate (6-25 bmp) - Vaginal Exam Dilation (cm): 4 Effacement (Percent): 80 Station: -3 Cervical Position: Midposition - Labor Progress (Free Text) Labor Progress: Active labor now. Progressing well. Two most recent blood sugars 77 and 72. Comfortable with epidural Will sign out to Dr. Quiñones.
[2019-09-03] MEDS ORDERED: Bupivacaine 0.25% 10 ML SDV ONE (18:00)
[2019-09-03] MEDS ORDERED: Lidocaine 2% with EPINEPHrine 1:200,000 20 ML SDV ONE (18:00)
[2019-09-03] MEDS ORDERED: Acetaminophen 325 MG Tab PO PRN (19:19)
--- NOTE | 2019-09-03 19:38 | PCM.SN.2 ---
- Free Text/Narrative Note: Cervical check. Cervix remains 5 cm dilated and has been 5 cm dilated since at least 1830 hrs. uterine pressure catheter (UPC) and heart tone electrode placed. Discussed the importance of cervical dilatation and progress during labor. Patient has not had a previous for the past 9 years. All of her pregnancies delivered 9 pound babies or greater with the largest being 9 pounds 6 ounces. Has been a gestational diabetic during this and Dr. Martins ordered insulin 4 doses daily. With the patient concerning section if necessary if no progress made by 930 to 10:00 tonight adequate contractions. Prefer vaginal liver if possible. Grade 1 heart rate tractions every 2 to 3 minutes.
--- NOTE | 2019-09-03 23:48 | PCM.DEL ---
L & D Note - General Info Date of Service: 09/03/19 - Delivery Note Labor: Augmented by ARM, Augmented by Oxytocin Cervical Ripening Method: Misoprostil Delivery Outcome: Livebirth (Female liveborn 09[birth year]03[birth year]2019 at 2329 hrs. 3660 g 8 pounds 1.1 ounce female Apgars 8/9 RONALD) Delivery Method: Spontaneous Vaginal Delivery-Single Infant Delivery Mode: Spontaneous Presentation: Right Occiput Anterior (RONALD) Nuchal Cord: None Prep: Povidone-Iodine (Betadine Anesthesia Type: Epidural Amniotic Fluid Description: Clear Episiotomy Type: None Laceration: None Placenta: Intact, Spontaneous (2333 hours on 09/03/2019) Cord: 3 Vessels Estimated Blood Loss: 250 Resuscitation Needed: No [place]: Suctioned, Bulb Syringe, Stimulated, Warmed, [place] Used, Warmer Used Provider: Que Quiñones Score 1 min: 8 Score 5 min: 9 Induction Criteria - Brian Score Brian Score Dilation: 1-2 cm Brian Score Effacement: 40-50% Brian Score 's Station: -2 Brian Score Consistency: Soft Brian Score Cervix Position: Posterior Brian Score Total: 5 Brian Score Presenting Part: Reports: Cephalic - Induction Gestational Age >/= 39 wks: No Medical Indication: Gestational diabetes on insulin Estimated Pelvis: Reports: Adequate Reassuring Monitoring Strip: Yes Absence of Tachy Systole: Yes - Augmentation Estimated Pelvis: Reports: Adequate Weight Estimated:: Reports: AGA Reassuring Monitoring Strip: Yes Absence of Tachy Systole: Yes - General Info Date of Service: 09/03/19 Functional Status: Reports: Pain Controlled - Review of Systems General: Reports: No Symptoms HEENT: Reports: No Symptoms Pulmonary: Reports: No Symptoms Cardiovascular: Reports: No Symptoms Gastrointestinal: Reports: No Symptoms Genitourinary: Reports: No Symptoms Musculoskeletal: Reports: No Symptoms Skin: Reports: No Symptoms Neurological: Reports: No Symptoms Psychiatric: Reports: No Symptoms - Patient Data Vitals - Most Recent: Last Vital Signs Temp 97.6 F 09/03/19 07:59 Pulse 88 09/03/19 07:59 Resp BP 158/96 H 09/03/19 07:59 Pulse Ox Weight - Most Recent: 308 lb 6.4 oz Lab Results Last 24 Hours: Laboratory Results - last 24 hr 09/03/19 09/03/19 09/03/19 Range/Units 07:40 07:40 08:55 WBC 12.07 H (3.98-10.04) K/mm3 RBC 4.02 (3.98-5.22) M/mm3 Hgb 11.7 (11.2-15.7) gm/dl Hct 36.0 (34.1-44.9) % MCV 89.6 (79.4-94.8) fl MCH 29.1 (25.6-32.2) pg MCHC 32.5 (32.2-35.5) g/dl RDW Std Deviation 43.2 (36.4-46.3) fL Plt Count 247 (182-369) K/mm3 MPV 11.1 (9.4-12.3) fl Neut % (Auto) 64.6 (34.0-71.1) % Lymph % (Auto) 26.5 (19.3-51.7) % Garza % (Auto) 7.2 (4.7-12.5) % Eos % (Auto) 0.8 (0.7-5.8) Baso % (Auto) 0.2 (0.1-1.2) % Neut # (Auto) 7.80 H (1.56-6.13) K/mm3 Lymph # (Auto) 3.20 (1.18-3.74) K/mm3 Garza # (Auto) 0.87 H (0.24-0.36) K/mm3 Eos # (Auto) 0.10 (0.04-0.36) K/mm3 Baso # (Auto) 0.02 (0.01-0.08) K/mm3 BUN 11 (7-18) mg/dL Creatinine 0.6 (0.55-1.02) mg/dL Est Cr Clr Drug Dosing 135.79 mL/min Estimated GFR (MDRD) > 60 (>60) mL/min POC Glucose (70-105) mg/dL Uric Acid 4.8 (2.6-6.0) mg/dL AST 14 L (15-37) U/L ALT 14 (14-59) U/L Lactate Dehydrogenase 150 (81-234) U/L Ur Random Creatinine (30.0-125.0) mg/dL U Random Total Protein (0.0-11.8) mg/dL Protein/Creatinin Ratio SARS-CoV-2 RNA (RT-PCR) Negative (NEGATIVE) 09/03/19 09/03/19 09/03/19 Range/Units 09:30 15:52 18:25 WBC (3.98-10.04) K/mm3 RBC (3.98-5.22) M/mm3 Hgb (11.2-15.7) gm/dl Hct (34.1-44.9) % MCV (79.4-94.8) fl MCH (25.6-32.2) pg MCHC (32.2-35.5) g/dl RDW Std Deviation (36.4-46.3) fL Plt Count (182-369) K/mm3 MPV (9.4-12.3) fl Neut % (Auto) (34.0-71.1) % Lymph % (Auto) (19.3-51.7) % Garza % (Auto) (4.7-12.5) % Eos % (Auto) (0.7-5.8) Baso % (Auto) (0.1-1.2) % Neut # (Auto) (1.56-6.13) K/mm3 Lymph # (Auto) (1.18-3.74) K/mm3 Garza # (Auto) (0.24-0.36) K/mm3 Eos # (Auto) (0.04-0.36) K/mm3 Baso # (Auto) (0.01-0.08) K/mm3 BUN (7-18) mg/dL Creatinine (0.55-1.02) mg/dL Est Cr Clr Drug Dosing mL/min Estimated GFR (MDRD) (>60) mL/min POC Glucose 77 81 (70-105) mg/dL Uric Acid (2.6-6.0) mg/dL AST (15-37) U/L ALT (14-59) U/L Lactate Dehydrogenase (81-234) U/L Ur Random Creatinine 55.0 (30.0-125.0) mg/dL U Random Total Protein < 6.0 (0.0-11.8) mg/dL Protein/Creatinin Ratio TNP SARS-CoV-2 RNA (RT-PCR) (NEGATIVE) 09/03/19 Range/Units 20:04 WBC (3.98-10.04) K/mm3 RBC (3.98-5.22) M/mm3 Hgb (11.2-15.7) gm/dl Hct (34.1-44.9) % MCV (79.4-94.8) fl MCH (25.6-32.2) pg MCHC (32.2-35.5) g/dl RDW Std Deviation (36.4-46.3) fL Plt Count (182-369) K/mm3 MPV (9.4-12.3) fl Neut % (Auto) (34.0-71.1) % Lymph % (Auto) (19.3-51.7) % Garza % (Auto) (4.7-12.5) % Eos % (Auto) (0.7-5.8) Baso % (Auto) (0.1-1.2) % Neut # (Auto) (1.56-6.13) K/mm3 Lymph # (Auto) (1.18-3.74) K/mm3 Garza # (Auto) (0.24-0.36) K/mm3 Eos # (Auto) (0.04-0.36) K/mm3 Baso # (Auto) (0.01-0.08) K/mm3 BUN (7-18) mg/dL Creatinine (0.55-1.02) mg/dL Est Cr Clr Drug Dosing mL/min Estimated GFR (MDRD) (>60) mL/min POC Glucose 80 (70-105) mg/dL Uric Acid (2.6-6.0) mg/dL AST (15-37) U/L ALT (14-59) U/L Lactate Dehydrogenase (81-234) U/L Ur Random Creatinine (30.0-125.0) mg/dL U Random Total Protein (0.0-11.8) mg/dL Protein/Creatinin Ratio SARS-CoV-2 RNA (RT-PCR) (NEGATIVE) Med Orders - Current: Current Medications Acetaminophen (Tylenol) 650 mg PO Q4H PRN PRN Reason: Headache Last Admin: 09/03/19 20:00 Dose: 650 mg Documented by: Diphenhydramine HCl (Benadryl) 25 mg IVPUSH Q6H PRN PRN Reason: pruritis Ephedrine Sulfate (Ephedrine Sulfate) 5 mg IVPUSH ASDIRECTED PRN PRN Reason: Hypotension Fentanyl (Sublimaze) 100 mcg EPIDUR Q3H PRN PRN Reason: Pain Last Admin: 09/03/19 22:36 Dose: 100 mcg Documented by: Fentanyl/Bupivacaine HCl (Fentanyl/Bupivacaine/Ns 2 Mcg-0.125% 100 Ml) 100 ml EPIDUR ASDIRECTED PRN PRN Reason: Pain Last Admin: 09/03/19 13:55 Dose: 100 ml Documented by: Lactated Ringer's (Ringers, Lactated) 1,000 mls @ 100 mls/hr IV ASDIRECTED GERMAINE Last Admin: 09/03/19 13:38 Dose: 999 mls/hr Documented by: Oxytocin/Lactated Ringer's (Pitocin In Lr 10 Units/1,000 Ml) 10 unit in 1,000 mls @ 12 mls/hr IV TITRATE GERMAINE; Protocol Last Titration: 09/03/19 18:30 Dose: 14 munits/min, 84 mls/hr Documented by: Lactated Ringer's (Ringers, Lactated) 1,000 mls @ 40 mls/hr IV ASDIRECTED GERMAINE Nalbuphine HCl (Nubain) 10 mg IVPUSH Q2H PRN PRN Reason: Pain Sodium Chloride (Saline Flush) 10 ml FLUSH ASDIRECTED PRN PRN Reason: Keep Vein Open Discontinued Medications Misoprostol (Cytotec) 50 mcg VAG ONETIME ONE Stop: 09/03/19 07:31 Last Admin: 09/03/19 08:00 Dose: 50 mcg Documented by: Misoprostol (Cytotec) Confirm Administered Dose 25 mcg .ROUTE .STK-MED ONE Stop: 09/03/19 08:02 Last Admin: 09/03/19 10:16 Dose: Not Given Documented by: - Exam General: Alert, Oriented HEENT: Pupils Equal, Mucous Membr. Moist/[place] (Female) Exam: Normal External Exam Extremities: Normal Inspection, Non-Tender, No Pedal Edema, Normal Capillary Refill Skin: Warm, Dry, Intact Psy/Mental Status: Alert, Normal Affect, Normal Mood - Problem List & Annotations (1) 37 weeks gestation of SNOMED Code(s): 64872608 Code(s): Z3A.37 - 37 WEEKS GESTATION OF Status: Acute Current Visit: Yes (2) Gestational diabetes mellitus (GDM) affecting fifth SNOMED Code(s): 10099280172403 Code(s): O24.419 - GESTATIONAL DIABETES MELLITUS IN , UNSP CONTROL; O09.40 - SUPERVISION OF W GRAND MULTIPARITY, UNSP TRIMESTER Status: Acute Current Visit: Yes (3) Normal delivery at term SNOMED Code(s): 67232327 Code(s): O80 - ENCOUNTER FOR FULL-TERM UNCOMPLICATED DELIVERY Status: Acute Current Visit: Yes - Problem List Review Problem List Initiated/Reviewed/Updated: No - My Orders Last 24 Hours: My Active Orders 09/03/19 19:19 Acetaminophen [Tylenol] 650 mg PO Q4H PRN - Assessment Assessment:: Normal spontaneous vaginal delivery stable - Plan Plan:: Here for induction. Slightly elevated blood pressures - labs pending. GLucose checks q2 hours. Anesthesia per patient request.
[2019-09-03] MEDS ORDERED: Witch Hazel Medicated Pads 40/Jar TOP PRN (23:55)
[2019-09-03] MEDS ORDERED: Docusate Sodium 100 MG Cap PO PRN (23:55)
[2019-09-03] MEDS ORDERED: Benzocaine/Menthol 20%-0.5% Spray 56 GM Canister TOP PRN (23:55)
[2019-09-04] MEDS: Oxytocin/Lactated Ringers 10 UNIT/1,000 ML BAG IV SCH (00:19)
[2019-09-04] MEDS: Ibuprofen 600 MG Tab PO PRN ×2 (02:22→16:33)
[2019-09-04] MEDS: Acetaminophen 325 MG Tab PO PRN ×3 (05:35→21:33)
--- NOTE | 2019-09-04 10:26 | PCM.SN.2 ---
- Free Text/Narrative Note: exam Afebrile, chest clear, uterus at umbilicus -1. No heavy vaginal bleeding. No leg cramping.
--- NOTE | 2019-09-04 11:54 | PCM48HPAN ---
Post Anesthesia Note - EVALUATION WITHIN 48HRS OF ANESTHETIC Vital Signs in Normal Range: Yes Patient Participated in Evaluation: Yes Respiratory Function Stable: Yes Airway Patent: Yes Cardiovascular Function Stable: Yes Hydration Status Stable: Yes Pain Control Satisfactory: Yes Nausea and Vomiting Control Satisfactory: Yes Mental Status Recovered: Yes Vital Signs: Last Vital Signs Temp 97.9 F 09/04/19 08:29 Pulse 84 09/04/19 08:29 Resp 16 09/04/19 08:29 BP 142/84 H 09/04/19 08:29 Pulse Ox 96 09/04/19 08:29 - COMMENTS/OBSERVATIONS Free Text/Narrative:: Patient is on her day 1. Denies any back pain, soreness, ambulating, no urinary retention.
[2019-09-05] MEDS: Ibuprofen 600 MG Tab PO PRN (00:31)
[2019-09-05] MEDS: Acetaminophen 325 MG Tab PO PRN (08:22)
--- NOTE | 2019-09-05 10:39 | PCM.DCSUM1 ---
Discharge Summary - Hospital Course Free Text/Narrative:: [place] [facility] L/D Delivery Note Patient Name: LOURDES KHANNA Date of : 87 Patient Status: Inpatient Attending Provider: Yesenia Fong Date: 09/03/19 23:42 Initialization Date: 09/03/19 23:42 L & D Note - General Info Date of Service: 09/03/19 - Delivery Note Labor: Augmented by ARM, Augmented by Oxytocin Cervical Ripening Method: Misoprostil Delivery Outcome: Livebirth (Female liveborn 09/03/2019 at 2329 hrs. 3660 g 8 pounds 1.1 ounce female Apgars 8/9 RONALD) Delivery Method: Spontaneous Vaginal Delivery-Single Infant Delivery Mode: Spontaneous Presentation: Right Occiput Anterior (RONALD) Nuchal Cord: None Prep: Povidone-Iodine (Betadine Anesthesia Type: Epidural Amniotic Fluid Description: Clear Episiotomy Type: None Laceration: None Placenta: Intact, Spontaneous (2333 hours on 09/03/2019) Cord: 3 Vessels Estimated Blood Loss: 250 Resuscitation Needed: No [place]: Suctioned, Bulb Syringe, Stimulated, Warmed, [place] Used, Warmer Used Provider: Que Quiñones Score 1 min: 8 Score 5 min: 9 Induction Criteria - Brian Score Brian Score Dilation: 1-2 cm Brian Score Effacement: 40-50% Brian Score 's Station: -2 Brian Score Consistency: Soft Brian Score Cervix Position: Posterior Brian Score Total: 5 Brian Score Presenting Part: Reports: Cephalic - Induction Gestational Age >/= 39 wks: No Medical Indication: Gestational diabetes on insulin Estimated Pelvis: Reports: Adequate Reassuring Monitoring Strip: Yes Absence of Tachy Systole: Yes - Augmentation Estimated Pelvis: Reports: Adequate Weight Estimated:: Reports: AGA Reassuring Monitoring Strip: Yes Absence of Tachy Systole: Yes - General Info Date of Service: 09/03/19 Functional Status: Reports: Pain Controlled - Review of Systems General: Reports: No Symptoms HEENT: Reports: No Symptoms Pulmonary: Reports: No Symptoms Cardiovascular: Reports: No Symptoms Gastrointestinal: Reports: No Symptoms Genitourinary: Reports: No Symptoms Musculoskeletal: Reports: No Symptoms Skin: Reports: No Symptoms Neurological: Reports: No Symptoms Psychiatric: Reports: No Symptoms - Patient Data Vitals - Most Recent: Last Vital Signs Temp 97.6 F 09/03/19 07:59 Pulse 88 09/03/19 07:59 Resp BP 158/96 H 09/03/19 07:59 Pulse Ox Weight - Most Recent: 308 lb 6.4 oz Lab Results Last 24 Hours: Laboratory Results - last 24 hr 09/03/19 09/03/19 09/03/19 Range/Units 07:40 07:40 08:55 WBC 12.07 H (3.98-10.04) K/mm3 RBC 4.02 (3.98-5.22) M/mm3 Hgb 11.7 (11.2-15.7) gm/dl Hct 36.0 (34.1-44.9) % MCV 89.6 (79.4-94.8) fl MCH 29.1 (25.6-32.2) pg MCHC 32.5 (32.2-35.5) g/dl RDW Std Deviation 43.2 (36.4-46.3) fL Plt Count 247 (182-369) K/mm3 MPV 11.1 (9.4-12.3) fl Neut % (Auto) 64.6 (34.0-71.1) % Lymph % (Auto) 26.5 (19.3-51.7) % [place] % (Auto) 7.2 (4.7-12.5) % Eos % (Auto) 0.8 (0.7-5.8) Baso % (Auto) 0.2 (0.1-1.2) % Neut # (Auto) 7.80 H (1.56-6.13) K/mm3 Lymph # (Auto) 3.20 (1.18-3.74) K/mm3 [place] # (Auto) 0.87 H (0.24-0.36) K/mm3 Eos # (Auto) 0.10 (0.04-0.36) K/mm3 Baso # (Auto) 0.02 (0.01-0.08) K/mm3 BUN 11 (7-18) mg/dL Creatinine 0.6 (0.55-1.02) mg/dL Est Cr Clr Drug Dosing 135.79 mL/min Estimated GFR (MDRD) > 60 (>60) mL/min POC Glucose (70-105) mg/dL Uric Acid 4.8 (2.6-6.0) mg/dL AST 14 L (15-37) U/L ALT 14 (14-59) U/L Lactate Dehydrogenase 150 (81-234) U/L Ur Random Creatinine (30.0-125.0) mg/dL U Random Total Protein (0.0-11.8) mg/dL Protein/Creatinin Ratio SARS-CoV-2 RNA (RT-PCR) Negative (NEGATIVE) 09/03/19 09/03/19 09/03/19 Range/Units 09:30 15:52 18:25 WBC (3.98-10.04) K/mm3 RBC (3.98-5.22) M/mm3 Hgb (11.2-15.7) gm/dl Hct (34.1-44.9) % MCV (79.4-94.8) fl MCH (25.6-32.2) pg MCHC (32.2-35.5) g/dl RDW Std Deviation (36.4-46.3) fL Plt Count (182-369) K/mm3 MPV (9.4-12.3) fl Neut % (Auto) (34.0-71.1) % Lymph % (Auto) (19.3-51.7) % [place] % (Auto) (4.7-12.5) % Eos % (Auto) (0.7-5.8) Baso % (Auto) (0.1-1.2) % Neut # (Auto) (1.56-6.13) K/mm3 Lymph # (Auto) (1.18-3.74) K/mm3 [place] # (Auto) (0.24-0.36) K/mm3 Eos # (Auto) (0.04-0.36) K/mm3 Baso # (Auto) (0.01-0.08) K/mm3 BUN (7-18) mg/dL Creatinine (0.55-1.02) mg/dL Est Cr Clr Drug Dosing mL/min Estimated GFR (MDRD) (>60) mL/min POC Glucose 77 81 (70-105) mg/dL Uric Acid (2.6-6.0) mg/dL AST (15-37) U/L ALT (14-59) U/L Lactate Dehydrogenase (81-234) U/L Ur Random Creatinine 55.0 (30.0-125.0) mg/dL U Random Total Protein < 6.0 (0.0-11.8) mg/dL Protein/Creatinin Ratio TNP SARS-CoV-2 RNA (RT-PCR) (NEGATIVE) 09/03/19 Range/Units 20:04 WBC (3.98-10.04) K/mm3 RBC (3.98-5.22) M/mm3 Hgb (11.2-15.7) gm/dl Hct (34.1-44.9) % MCV (79.4-94.8) fl MCH (25.6-32.2) pg MCHC (32.2-35.5) g/dl RDW Std Deviation (36.4-46.3) fL Plt Count (182-369) K/mm3 MPV (9.4-12.3) fl Neut % (Auto) (34.0-71.1) % Lymph % (Auto) (19.3-51.7) % [place] % (Auto) (4.7-12.5) % Eos % (Auto) (0.7-5.8) Baso % (Auto) (0.1-1.2) % Neut # (Auto) (1.56-6.13) K/mm3 Lymph # (Auto) (1.18-3.74) K/mm3 [place] # (Auto) (0.24-0.36) K/mm3 Eos # (Auto) (0.04-0.36) K/mm3 Baso # (Auto) (0.01-0.08) K/mm3 BUN (7-18) mg/dL Creatinine (0.55-1.02) mg/dL Est Cr Clr Drug Dosing mL/min Estimated GFR (MDRD) (>60) mL/min POC Glucose 80 (70-105) mg/dL Uric Acid (2.6-6.0) mg/dL AST (15-37) U/L ALT (14-59) U/L Lactate Dehydrogenase (81-234) U/L Ur Random Creatinine (30.0-125.0) mg/dL U Random Total Protein (0.0-11.8) mg/dL Protein/Creatinin Ratio SARS-CoV-2 RNA (RT-PCR) (NEGATIVE) Med Orders - Current: Current Medications Acetaminophen (Tylenol) 650 mg PO Q4H PRN PRN Reason: Headache Last Admin: 09/03/19 20:00 Dose: 650 mg Documented by: Diphenhydramine HCl (Benadryl) 25 mg IVPUSH Q6H PRN PRN Reason: pruritis Ephedrine Sulfate (Ephedrine Sulfate) 5 mg IVPUSH ASDIRECTED PRN PRN Reason: Hypotension Fentanyl (Sublimaze) 100 mcg EPIDUR Q3H PRN PRN Reason: Pain Last Admin: 09/03/19 22:36 Dose: 100 mcg Documented by: Fentanyl/Bupivacaine HCl (Fentanyl/Bupivacaine/Ns 2 Mcg-0.125% 100 Ml) 100 ml EPIDUR ASDIRECTED PRN PRN Reason: Pain Last Admin: 09/03/19 13:55 Dose: 100 ml Documented by: Lactated Ringer's (Ringers, Lactated) 1,000 mls @ 100 mls/hr IV ASDIRECTED GERMAINE Last Admin: 09/03/19 13:38 Dose: 999 mls/hr Documented by: Oxytocin/Lactated Ringer's (Pitocin In Lr 10 Units/1,000 Ml) 10 unit in 1,000 mls @ 12 mls/hr IV TITRATE GERMAINE; Protocol Last Titration: 09/03/19 18:30 Dose: 14 munits/min, 84 mls/hr Documented by: Lactated Ringer's (Ringers, Lactated) 1,000 mls @ 40 mls/hr IV ASDIRECTED GERMAINE Nalbuphine HCl (Nubain) 10 mg IVPUSH Q2H PRN PRN Reason: Pain Sodium Chloride (Saline Flush) 10 ml FLUSH ASDIRECTED PRN PRN Reason: Keep Vein Open Discontinued Medications Misoprostol (Cytotec) 50 mcg VAG ONETIME ONE Stop: 09/03/19 07:31 Last Admin: 09/03/19 08:00 Dose: 50 mcg Documented by: Misoprostol (Cytotec) Confirm Administered Dose 25 mcg .ROUTE .STK-MED ONE Stop: 09/03/19 08:02 Last Admin: 09/03/19 10:16 Dose: Not Given Documented by: - Exam General: Alert, Oriented HEENT: Pupils Equal, Mucous Membr. Moist/[place] (Female) Exam: Normal External Exam Extremities: Normal Inspection, Non-Tender, No Pedal Edema, Normal Capillary Refill Skin: Warm, Dry, Intact Psy/Mental Status: Alert, Normal Affect, Normal Mood - Problem List & Annotations (1) 37 weeks gestation of SNOMED Code(s): 11809266 Code(s): Z3A.37 - 37 WEEKS GESTATION OF Status: Acute Current Visit: Yes (2) Gestational diabetes mellitus (GDM) affecting fifth SNOMED Code(s): 47016796292778 Code(s): O24.419 - GESTATIONAL DIABETES MELLITUS IN , UNSP CONTROL; O09.40 - SUPERVISION OF W GRAND MULTIPARITY, UNSP TRIMESTER Status: Acute Current Visit: Yes (3) Normal delivery at term SNOMED Code(s): 56454059 Code(s): O80 - ENCOUNTER FOR FULL-TERM UNCOMPLICATED DELIVERY Status: Acute Current Visit: Yes - Problem List Review Problem List Initiated/Reviewed/Updated: No - My Orders Last 24 Hours: My Active Orders 09/03/19 19:19 Acetaminophen [Tylenol] 650 mg PO Q4H PRN - Assessment Assessment:: Normal spontaneous vaginal delivery stable - Plan Plan:: Here for induction. Slightly elevated blood pressures - labs pending. GLucose checks q2 hours. Anesthesia per patient request. HPI Initial Comments: [place] [facility] L/D Delivery Note Patient Name: LOURDES KHANNA Date of : 87 Patient Status: Inpatient Attending Provider: Yesenia Fong Date: 09/03/19 23:42 Initialization Date: 09/03/19 23:42 L & D Note - General Info Date of Service: 09/03/19 - Delivery Note Labor: Augmented by ARM, Augmented by Oxytocin Cervical Ripening Method: Misoprostil Delivery Outcome: Livebirth (Female liveborn 09/03/2019 at 2329 hrs. 3660 g 8 pounds 1.1 ounce female Apgars 8/9 RONALD) Infant Delivery Method: Spontaneous Vaginal Delivery-Single Infant Delivery Mode: Spontaneous Presentation: Right Occiput Anterior (RONALD) Nuchal Cord: None Prep: Povidone-Iodine (Betadine Anesthesia Type: Epidural Amniotic Fluid Description: Clear Episiotomy Type: None Laceration: None Placenta: Intact, Spontaneous (2333 hours on 09/03/2019) Cord: 3 Vessels Estimated Blood Loss: 250 Resuscitation Needed: No [place]: Suctioned, Bulb Syringe, Stimulated, Warmed, [place] Used, Warmer Used Provider: Que Quiñones Score 1 min: 8 Score 5 min: 9 Induction Criteria - Brian Score Brian Score Dilation: 1-2 cm Brian Score Effacement: 40-50% Brian Score Infant's Station: -2 Brian Score Consistency: Soft Brian Score Cervix Position: Posterior Brian Score Total: 5 Brian Score Presenting Part: Reports: Cephalic - Induction Gestational Age >/= 39 wks: No Medical Indication: Gestational diabetes on insulin Estimated Pelvis: Reports: Adequate Reassuring Monitoring Strip: Yes Absence of Tachy Systole: Yes - Augmentation Estimated Pelvis: Reports: Adequate Weight Estimated:: Reports: AGA Reassuring Monitoring Strip: Yes Absence of Tachy Systole: Yes - General Info Date of Service: 09/03/19 Functional Status: Reports: Pain Controlled - Review of Systems General: Reports: No Symptoms HEENT: Reports: No Symptoms Pulmonary: Reports: No Symptoms Cardiovascular: Reports: No Symptoms Gastrointestinal: Reports: No Symptoms Genitourinary: Reports: No Symptoms Musculoskeletal: Reports: No Symptoms Skin: Reports: No Symptoms Neurological: Reports: No Symptoms Psychiatric: Reports: No Symptoms - Patient Data Vitals - Most Recent: Last Vital Signs Temp 97.6 F 09/03/19 07:59 Pulse 88 09/03/19 07:59 Resp BP 158/96 H 09/03/19 07:59 Pulse Ox Weight - Most Recent: 308 lb 6.4 oz Lab Results Last 24 Hours: Laboratory Results - last 24 hr 09/03/19 09/03/19 09/03/19 Range/Units 07:40 07:40 08:55 WBC 12.07 H (3.98-10.04) K/mm3 RBC 4.02 (3.98-5.22) M/mm3 Hgb 11.7 (11.2-15.7) gm/dl Hct 36.0 (34.1-44.9) % MCV 89.6 (79.4-94.8) fl MCH 29.1 (25.6-32.2) pg MCHC 32.5 (32.2-35.5) g/dl RDW Std Deviation 43.2 (36.4-46.3) fL Plt Count 247 (182-369) K/mm3 MPV 11.1 (9.4-12.3) fl Neut % (Auto) 64.6 (34.0-71.1) % Lymph % (Auto) 26.5 (19.3-51.7) % [place] % (Auto) 7.2 (4.7-12.5) % Eos % (Auto) 0.8 (0.7-5.8) Baso % (Auto) 0.2 (0.1-1.2) % Neut # (Auto) 7.80 H (1.56-6.13) K/mm3 Lymph # (Auto) 3.20 (1.18-3.74) K/mm3 [place] # (Auto) 0.87 H (0.24-0.36) K/mm3 Eos # (Auto) 0.10 (0.04-0.36) K/mm3 Baso # (Auto) 0.02 (0.01-0.08) K/mm3 BUN 11 (7-18) mg/dL Creatinine 0.6 (0.55-1.02) mg/dL Est Cr Clr Drug Dosing 135.79 mL/min Estimated GFR (MDRD) > 60 (>60) mL/min POC Glucose (70-105) mg/dL Uric Acid 4.8 (2.6-6.0) mg/dL AST 14 L (15-37) U/L ALT 14 (14-59) U/L Lactate Dehydrogenase 150 (81-234) U/L Ur Random Creatinine (30.0-125.0) mg/dL U Random Total Protein (0.0-11.8) mg/dL Protein/Creatinin Ratio SARS-CoV-2 RNA (RT-PCR) Negative (NEGATIVE) 09/03/19 09/03/19 09/03/19 Range/Units 09:30 15:52 18:25 WBC (3.98-10.04) K/mm3 RBC (3.98-5.22) M/mm3 Hgb (11.2-15.7) gm/dl Hct (34.1-44.9) % MCV (79.4-94.8) fl MCH (25.6-32.2) pg MCHC (32.2-35.5) g/dl RDW Std Deviation (36.4-46.3) fL Plt Count (182-369) K/mm3 MPV (9.4-12.3) fl Neut % (Auto) (34.0-71.1) % Lymph % (Auto) (19.3-51.7) % [place] % (Auto) (4.7-12.5) % Eos % (Auto) (0.7-5.8) Baso % (Auto) (0.1-1.2) % Neut # (Auto) (1.56-6.13) K/mm3 Lymph # (Auto) (1.18-3.74) K/mm3 [place] # (Auto) (0.24-0.36) K/mm3 Eos # (Auto) (0.04-0.36) K/mm3 Baso # (Auto) (0.01-0.08) K/mm3 BUN (7-18) mg/dL Creatinine (0.55-1.02) mg/dL Est Cr Clr Drug Dosing mL/min Estimated GFR (MDRD) (>60) mL/min POC Glucose 77 81 (70-105) mg/dL Uric Acid (2.6-6.0) mg/dL AST (15-37) U/L ALT (14-59) U/L Lactate Dehydrogenase (81-234) U/L Ur Random Creatinine 55.0 (30.0-125.0) mg/dL U Random Total Protein < 6.0 (0.0-11.8) mg/dL Protein/Creatinin Ratio TNP SARS-CoV-2 RNA (RT-PCR) (NEGATIVE) 09/03/19 Range/Units 20:04 WBC (3.98-10.04) K/mm3 RBC (3.98-5.22) M/mm3 Hgb (11.2-15.7) gm/dl Hct (34.1-44.9) % MCV (79.4-94.8) fl MCH (25.6-32.2) pg MCHC (32.2-35.5) g/dl RDW Std Deviation (36.4-46.3) fL Plt Count (182-369) K/mm3 MPV (9.4-12.3) fl Neut % (Auto) (34.0-71.1) % Lymph % (Auto) (19.3-51.7) % [place] % (Auto) (4.7-12.5) % Eos % (Auto) (0.7-5.8) Baso % (Auto) (0.1-1.2) % Neut # (Auto) (1.56-6.13) K/mm3 Lymph # (Auto) (1.18-3.74) K/mm3 [place] # (Auto) (0.24-0.36) K/mm3 Eos # (Auto) (0.04-0.36) K/mm3 Baso # (Auto) (0.01-0.08) K/mm3 BUN (7-18) mg/dL Creatinine (0.55-1.02) mg/dL Est Cr Clr Drug Dosing mL/min Estimated GFR (MDRD) (>60) mL/min POC Glucose 80 (70-105) mg/dL Uric Acid (2.6-6.0) mg/dL AST (15-37) U/L ALT (14-59) U/L Lactate Dehydrogenase (81-234) U/L Ur Random Creatinine (30.0-125.0) mg/dL U Random Total Protein (0.0-11.8) mg/dL Protein/Creatinin Ratio SARS-CoV-2 RNA (RT-PCR) (NEGATIVE) Med Orders - Current: Current Medications Acetaminophen (Tylenol) 650 mg PO Q4H PRN PRN Reason: Headache Last Admin: 09/03/19 20:00 Dose: 650 mg Documented by: Diphenhydramine HCl (Benadryl) 25 mg IVPUSH Q6H PRN PRN Reason: pruritis Ephedrine Sulfate (Ephedrine Sulfate) 5 mg IVPUSH ASDIRECTED PRN PRN Reason: Hypotension Fentanyl (Sublimaze) 100 mcg EPIDUR Q3H PRN PRN Reason: Pain Last Admin: 09/03/19 22:36 Dose: 100 mcg Documented by: Fentanyl/Bupivacaine HCl (Fentanyl/Bupivacaine/Ns 2 Mcg-0.125% 100 Ml) 100 ml EPIDUR ASDIRECTED PRN PRN Reason: Pain Last Admin: 09/03/19 13:55 Dose: 100 ml Documented by: Lactated Ringer's (Ringers, Lactated) 1,000 mls @ 100 mls/hr IV ASDIRECTED GERMAINE Last Admin: 09/03/19 13:38 Dose: 999 mls/hr Documented by: Oxytocin/Lactated Ringer's (Pitocin In Lr 10 Units/1,000 Ml) 10 unit in 1,000 mls @ 12 mls/hr IV TITRATE GERMAINE; Protocol Last Titration: 09/03/19 18:30 Dose: 14 munits/min, 84 mls/hr Documented by: Lactated Ringer's (Ringers, Lactated) 1,000 mls @ 40 mls/hr IV ASDIRECTED GERMAINE Nalbuphine HCl (Nubain) 10 mg IVPUSH Q2H PRN PRN Reason: Pain Sodium Chloride (Saline Flush) 10 ml FLUSH ASDIRECTED PRN PRN Reason: Keep Vein Open Discontinued Medications Misoprostol (Cytotec) 50 mcg VAG ONETIME ONE Stop: 09/03/19 07:31 Last Admin: 09/03/19 08:00 Dose: 50 mcg Documented by: Misoprostol (Cytotec) Confirm Administered Dose 25 mcg .ROUTE .STK-MED ONE Stop: 09/03/19 08:02 Last Admin: 09/03/19 10:16 Dose: Not Given Documented by: - Exam General: Alert, Oriented HEENT: Pupils Equal, Mucous Membr. Moist/[place] (Female) Exam: Normal External Exam Extremities: Normal Inspection, Non-Tender, No Pedal Edema, Normal Capillary Refill Skin: Warm, Dry, Intact Psy/Mental Status: Alert, Normal Affect, Normal Mood - Problem List & Annotations (1) 37 weeks gestation of SNOMED Code(s): 21933455 Code(s): Z3A.37 - 37 WEEKS GESTATION OF Status: Acute Current Visit: Yes (2) Gestational diabetes mellitus (GDM) affecting fifth SNOMED Code(s): 56800493910484 Code(s): O24.419 - GESTATIONAL DIABETES MELLITUS IN , UNSP CONTROL; O09.40 - SUPERVISION OF W GRAND MULTIPARITY, UNSP TRIMESTER Status: Acute Current Visit: Yes (3) Normal delivery at term SNOMED Code(s): 78423366 Code(s): O80 - ENCOUNTER FOR FULL-TERM UNCOMPLICATED DELIVERY Status: Acute Current Visit: Yes - Problem List Review Problem List Initiated/Reviewed/Updated: No - My Orders Last 24 Hours: My Active Orders 09/03/19 19:19 Acetaminophen [Tylenol] 650 mg PO Q4H PRN - Assessment Assessment:: Normal spontaneous vaginal delivery stable - Plan Plan:: Here for induction. Slightly elevated blood pressures - labs pending. GLucose checks q2 hours. Anesthesia per patient request. Brief History: [facility]IVE . L/D Delivery Note. Patient Name: LOURDES KHANNA Record Number: [id number]. Date of : 87Patient Status: Inpatient. Attending Provider: Yesenia Fongunt Number: [id number]. Date: 09/03/19 23:42Initialization Date: 09/03/19 23:42. L & D Note. - General Info. Date of Service: 09/03/19. - Delivery Note. Labor: Augmented by ARM, Augmented by Oxytocin. Cervical Ripening Method: Misoprostil. Delivery Outcome: Livebirth (Female liveborn 09/03/2019 at 2329 hrs. 3660 g 8 pounds 1.1 ounce female Apgars 8/9 RONALD). Infant Delivery Method: Spontaneous Vaginal Delivery-Single. Delivery Mode: Spontaneous. Presentation: Right Occiput Anterior (RONALD). Nuchal Cord: None. Prep: Povidone-Iodine (Betadine. Anesthesia Type: Epidural. Amniotic Fluid Description: Clear. Episiotomy Type: None. Laceration: None. Placenta: Intact, Spontaneous (2333 hours on 09/03/2019). Cord: 3 Vessels. Estimated Blood Loss: 250. Resuscitation Needed: No. [place]: Suctioned, Bulb Syringe, Stimulated, Warmed, [place] Used, Warmer Used. Provider: Que Quiñones. Score 1 min: 8. Score 5 min: 9. Induction Criteria. - Brian Score. Brian Score Dilation: 1-2 cm. Brian Score Effacement: 40-50%. Brian Score Infant's Station: -2. Brian Score Consistency: Soft. Brian Score Cervix Position: Posterior. Brian Score Total: 5. Brian Score Presenting Part: Reports: Cephalic. - Induction. Gestational Age >/= 39 wks: No. Medical Indication: Gestational diabetes on insulin. Estimated Pelvis: Reports: Adequate. Reassuring Monitoring Strip: Yes. Absence of Tachy Systole: Yes. - Augmentation. Estimated Pelvis: Reports: Adequate. Weight Estimated:: Reports: AGA. Reassuring Monitoring Strip: Yes. Absence of Tachy Systole: Yes. - General Info. Date of Service: 09/03/19. Functional Status: Reports: Pain Controlled. - Review of Systems. General: Reports: No Symptoms. HEENT: Reports: No Symptoms. Pulmonary: Reports: No Symptoms. Cardiovascular: Reports: No Symptoms. Gastrointestinal: Reports: No Symptoms. Genitourinary: Reports: No Symptoms. Musculoskeletal: Reports: No Symptoms. Skin: Reports: No Symptoms. Neurol ogical: Reports: No Symptoms. Psychiatric: Reports: No Symptoms. - Patient Data. Vitals - Most Recent: Last Vital Signs. Temp 97.6 F 09/03/19 07:59. Pulse 88 09/03/19 07:59. Resp. BP 158/96 H 09/03/19 07:59. Pulse Ox. Weight - Most Recent: 308 lb 6.4 oz. Lab Results Last 24 Hours: Laboratory Results - last 24 hr. 09/02/2005/Range/Units. 07:4007:4008:55. WBC 12.07 H (3.98-10.04) K/mm3. RBC 4.02 (3.98-5.22) M/mm3. Hgb 11.7 (11.2-15.7) gm/dl. Hct 36.0 (34.1-44.9) %. MCV 89.6 (79.4-94.8) fl. MCH 29.1 (25.6- 32.2) pg. MCHC 32.5 (32.2-35.5) g/dl. RDW Std Deviation 43.2 (36.4-46.3) fL. Plt Count 247 (182-369) K/mm3. MPV 11.1 (9.4-12.3) fl. Neut % (Auto) 64.6 (34.0-71.1) %. Lymph % (Auto) 26.5 (19.3-51.7) %. [place] % (Auto) 7.2 (4.7-12.5) %. Eos % (Auto) 0.8 (0.7-5.8). Baso % (Auto) 0.2 (0.1-1.2) %. Neut # (Auto) 7.80 H (1.56-6.13) K/mm3. Lymph # (Auto) 3.20 (1.18-3.74) K/mm3. [place] # (Auto) 0.87 H (0.24-0.36) K/mm3. Eos # (Auto) 0.10 (0.04-0.36) K/mm3. Baso # (Auto) 0.02 (0.01-0.08) K/mm3. BUN 11 (7-18) mg/dL. Creatinine 0.6 (0.55-1.02) mg/dL. Est Cr Clr Drug Dosing 135.79 mL/min. Estimated GFR (MDRD) > 60 (>60) mL/min. POC Glucose (70-105) mg/dL. Uric Acid 4.8 (2.6-6.0) mg/dL. AST 14 L (15-37) U/L. ALT 14 (14-59) U/L. Lactate Dehydrogenase 150 (81-234) U/L. Ur Random Creatinine (30.0-125.0) mg/dL. U Random Total Protein (0.0-11.8) mg/dL. Protein/Creatinin Ratio. SARS-CoV-2 RNA (RT-PCR) Negative (NEGATIVE). 09/02/2005//Range/Units. 09:3015:5218:25. WBC (3.98-10.04) K/mm3. RBC (3.98-5.22) M/mm3. Hgb (11.2-15.7) gm/dl. Hct (34.1-44.9) %. MCV (79.4-94.8) fl. MCH (25.6-32.2) pg. MCHC (32.2-35.5) g/dl. RDW Std Deviation (36.4-46.3) fL. Plt Count (182-369) K/mm3. MPV (9.4-12.3) fl. Neut % (Auto) (34.0-71.1) %. Lymph % (Auto) (19.3-51.7) %. [place] % (Auto) (4.7-12.5) %. Eos % (Auto) (0.7-5.8). Baso % (Auto) (0.1-1.2) %. Neut # (Auto) (1.56-6.13) K/mm3. Lymph # (Auto) (1.18-3.74) K/mm3. [place] # (Auto) (0.24-0.36) K/mm3. Eos # (Auto) (0.04-0.36) K/mm3. Baso # (Auto) (0.01-0.08) K/mm3. BUN (7-18) mg/dL. Creatinine (0.55-1.02) mg/dL. Est Cr Clr Drug Dosing mL/min. Estimated GFR (MDRD) (>60) mL/min. POC Glucose 77 81 (70-105) mg/dL. Uric Acid (2.6-6.0) mg/dL. AST (15-37) U/L. ALT (14-59) U/L. Lactate Dehydrogenase (81-234) U/L. Ur Random Creatinine 55.0 (30.0-125.0) mg/dL. U Random Total Protein < 6.0 (0.0-11.8) mg/dL. Protein/Creatinin Ratio TNP. SARS-CoV-2 RNA (RT-PCR) (NEGATIVE). 09/03/19Range/Units. 20:04. WBC (3.98-10.04) K/mm3. RBC (3.98-5.22) M/mm3. Hgb (11.2-15.7) gm/dl. Hct (34.1-44.9) %. MCV (79.4-94.8) fl. MCH (25.6-32.2) pg. MCHC (32.2-35.5) g/dl. RDW Std Deviation (36.4-46.3) fL. Plt Count (182-369) K/mm3. MPV (9.4-12.3) fl. Neut % (Auto) (34.0-71.1) %. Lymph % (Auto) (19.3-51.7) %. [place] % (Auto) (4.7-12.5) %. Eos % (Auto) (0.7-5.8). Baso % (Auto) (0.1-1.2) %. Neut # (Auto) (1.56-6.13) K/mm3. Lymph # (Auto) (1.18-3.74) K/mm3. [place] # (Auto) (0.24-0.36) K/mm3. Eos # (Auto) (0.04-0.36) K/mm3. Baso # (Auto) (0.01-0.08) K/mm3. BUN (7-18) mg/dL. Creatinine (0.55-1.02) mg/dL. Est Cr Clr Drug Dosing mL/min. Estimated GFR (MDRD) (>60) mL/min. POC Glucose 80 (70-105) mg/dL. Uric Acid (2.6-6.0) mg/dL. AST (15-37) U/L. ALT (14-59) U/L. Lactate Dehydrogenase (81-234) U/L. Ur Random Creatinine (30.0-125.0) mg/dL. U Random Total Protein (0.0-11.8) mg/dL. Protein/Creatinin Ratio. SARS-CoV-2 RNA (RT-PCR) (NEGATIVE). Med Orders - Current: Current Medications. Acetaminophen (Tylenol) 650 mg PO Q4H PRN. PRN Reason: Headache. Last Admin: 09/03/19 20:00 Dose: 650 mg. Documented by: Diphenhydramine HCl (Benadryl) 25 mg IVPUSH Q6H PRN. PRN Reason: pruritis. Ephedrine Sulfate (Ephedrine Sulfate) 5 mg IVPUSH ASDIRECTED PRN. PRN Reason: Hypotension. Fentanyl (Sublimaze) 100 mcg EPIDUR Q3H PRN. PRN Reason: Pain. Last Admin: 09/03/19 22:36 Dose: 100 mcg. Documented by: Fentanyl/Bupivacaine HCl (Fentanyl/Bupivacaine/Ns 2 Mcg-0.125% 100 Ml) 100 ml EPIDUR ASDIRECTED PRN. PRN Reason: Pain. Last Admin: 09/03/19 13:55 Dose: 100 ml. Documented by: Lactated Ringer's (Ringers, Lactated) 1,000 mls @ 100 mls/hr IV ASDIRECTED GERMAINE. Last Admin: 09/03/19 13:38 Dose: 999 mls/hr. Documented by: Oxytocin/Lactated Ringer's (Pitocin In Lr 10 Units/1,000 Ml) 10 unit in 1,000 mls @ 12 mls/hr IV TITRATE GERMAINE; Protocol. Last Titration: 09/03/19 18:30 Dose: 14 munits/min, 84 mls/hr. Documented by: Lactated Ringer's (Ringers, Lactated) 1,000 mls @ 40 mls/hr IV ASDIRECTED GERMAINE. Nalbuphine HCl (Nubain) 10 mg IVPUSH Q2H PRN. PRN Reason: Pain. Sodium Chloride (Saline Flush) 10 ml FLUSH ASDIRECTED PRN. PRN Reason: Keep Vein Open. Discontinued Medications. Misoprostol (Cytotec) 50 mcg VAG ONETIME ONE. Stop: 09/03/19 07:31. Last Admin: 09/03/19 08:00 Dose: 50 mcg. Documented by: Misoprostol (Cytotec) Conf irm Administered Dose 25 mcg .ROUTE .STK-MED ONE. Stop: 09/03/19 08:02. Last Admin: 09/03/19 10:16 Dose: Not Given. Documented by: - Exam. General: Alert, Oriented. HEENT: Pupils Equal, Mucous Membr. Moist/[place]. (Female) Exam: Normal External Exam. Extremities: Normal Inspection, Non-Tender, No Pedal Edema, Normal Capillary Refill. Skin: Warm, Dry, Intact. Psy/Mental Status: Alert, Normal Affect, Normal Mood. - Problem List & Annotations. (1) 37 weeks gestation of . SNOMED Code(s): 03764568. Code(s): Z3A.37 - 37 WEEKS GESTATION OF Status: Acute Current Visit: Yes. (2) Gestational diabetes mellitus (GDM) affecting fifth . SNOMED Code(s): 14007309682586. Code(s): O24.419 - GESTATIONAL DIABETES MELLITUS IN , UNSP CONTROL; O09.40 - SUPERVISION OF W GRAND MULTIPARITY, UNSP TRIMESTER Status: Acute Current Visit: Yes. (3) Normal delivery at term. SNOMED Code(s): 01124801. Code(s): O80 - ENCOUNTER FOR FULL-TERM UNCOMPLICATED DELIVERY Status: Acute Current Visit: Yes. - Problem List Review. Problem List Initiated/Reviewed/Updated: No. - My Orders. Last 24 Hours: My Active Orders. 09/03/19 19:19. Acetaminophen [Tylenol] 650 mg PO Q4H PRN. - Assessment. Assessment:: Normal spontaneous vaginal delivery stable. - Plan. Plan:: Here for induction. Slightly elevated blood pressures - labs pending. GLucose checks q2 hours. Anesthesia per patient request. Diagnosis: Stroke: No - Discharge Data Discharge Date: 09/05/19 Discharge Disposition: Home, Self-Care 01 Condition: Good - Referral to Home Health Primary Care Physician: Yesenia Fong MD - Discharge Diagnosis/Problem(s) (1) 37 weeks gestation of SNOMED Code(s): 44648712 ICD Code: Z3A.37 - 37 WEEKS GESTATION OF Status: Acute Current Visit: Yes (2) Gestational diabetes mellitus (GDM) affecting fifth SNOMED Code(s): 13219699008946 ICD Code: O24.419 - GESTATIONAL DIABETES MELLITUS IN , UNSP CONTROL; O09.40 - SUPERVISION OF W GRAND MULTIPARITY, UNSP TRIMESTER Status: Acute Current Visit: Yes (3) Normal delivery at term SNOMED Code(s): 15933005 ICD Code: O80 - ENCOUNTER FOR FULL-TERM UNCOMPLICATED DELIVERY Status: Acute Current Visit: Yes - Patient Summary/Data Complications: None Consults: None Hospital Course: Uneventful - Patient Instructions Diet: Usual Diet as Tolerated Driving: Do Not Drive (48 hours) Showering/Bathing: May Shower Notify Provider of: Fever, Increased Pain, Swelling and Redness, Drainage, Nausea and/or Vomiting - Discharge Plan *PRESCRIPTION DRUG MONITORING PROGRAM REVIEWED*: Not Applicable *COPY OF PRESCRIPTION DRUG MONITORING REPORT IN PATIENT ANTOINETTE: Not Applicable Home Medications: Home Meds Vits #93/Iron Fum/FA [ Formula Tablet] 1 tab PO DAILY 05/17/20 [History] Acetaminophen [Tylenol] 650 mg PO Q6H PRN tablet 09/05/19 [Rx] Benzocaine/Menthol [Dermoplast Pain Relief Bryan] 1 spray TOP ASDIRECTED PRN canister 09/05/19 [Rx] Docusate Sodium [Colace] 100 mg PO BID PRN cap 09/05/19 [Rx] Ibuprofen [Motrin] 600 mg PO Q6H PRN tablet 09/05/19 [Rx] kristal Kim [Clara] 1 pad TOP ASDIRECTED PRN pad 09/05/19 [Rx] Patient Handouts: Care After Vaginal Delivery Referrals: Yesenia Fong MD [Primary Care Provider] - (Will call for appointment to see ) - Discharge Summary/Plan Comment DC Time >30 min.: No - Patient Data Vitals - Most Recent: Last Vital Signs Temp 97.5 F 09/05/19 05:16 Pulse 78 09/05/19 05:16 Resp 14 09/05/19 05:16 BP 143/98 H 09/05/19 05:16 Pulse Ox 96 09/05/19 05:16 Weight - Most Recent: 308 lb 6.4 oz Med Orders - Current: Current Medications Acetaminophen (Tylenol) 650 mg PO Q4H PRN PRN Reason: mild pain or fever Last Admin: 09/05/19 08:22 Dose: 650 mg Documented by: Benzocaine/Menthol (Dermoplast Pain Relief Bryan) 0 gm TOP ASDIRECTED PRN PRN Reason: Perineal Comfort Measure Docusate Sodium (Colace) 100 mg PO BID PRN PRN Reason: Constipation Ibuprofen (Motrin) 600 mg PO Q4H PRN PRN Reason: Mild pain or fever Last Admin: 09/05/19 00:31 Dose: 600 mg Documented by: Kristal Kim (Lens) 1 pad TOP ASDIRECTED PRN PRN Reason: Perineal Comfort Measure Last Admin: 09/04/19 02:21 Dose: 1 container Documented by: Discontinued Medications Acetaminophen (Tylenol) 650 mg PO Q4H PRN PRN Reason: Headache Last Admin: 09/03/19 20:00 Dose: 650 mg Documented by: Bupivacaine HCl (Sensorcaine-Mpf 0.25%) 20 ml .ROUTE .STK-MED ONE Stop: 09/03/19 18:01 Diphenhydramine HCl (Benadryl) 25 mg IVPUSH Q6H PRN PRN Reason: pruritis Ephedrine Sulfate (Ephedrine Sulfate) 5 mg IVPUSH ASDIRECTED PRN PRN Reason: Hypotension Fentanyl (Sublimaze) 100 mcg EPIDUR Q3H PRN PRN Reason: Pain Last Admin: 09/03/19 22:36 Dose: 100 mcg Documented by: Fentanyl/Bupivacaine HCl (Fentanyl/Bupivacaine/Ns 2 Mcg-0.125% 100 Ml) 100 ml EPIDUR ASDIRECTED PRN PRN Reason: Pain Last Admin: 09/03/19 22:00 Dose: 100 ml Documented by: Lactated Ringer's (Ringers, Lactated) 1,000 mls @ 100 mls/hr IV ASDIRECTED GERMAINE Last Admin: 09/03/19 13:38 Dose: 999 mls/hr Documented by: Oxytocin/Lactated Ringer's (Pitocin In Lr 10 Units/1,000 Ml) 10 unit in 1,000 mls @ 12 mls/hr IV TITRATE GERMAINE; Protocol Last Admin: 09/04/19 00:19 Dose: 83.33 munits/min, 500 mls/hr Documented by: Lactated Ringer's (Ringers, Lactated) 1,000 mls @ 40 mls/hr IV ASDIRECTED GERMAINE Lidocaine/Epinephrine (Xylocaine-Mpf 2%-Epi 1:200,000) 20 ml .ROUTE .STK-MED ONE Stop: 09/03/19 18:01 Misoprostol (Cytotec) 50 mcg VAG ONETIME ONE Stop: 09/03/19 07:31 Last Admin: 09/03/19 08:00 Dose: 50 mcg Documented by: Misoprostol (Cytotec) Confirm Administered Dose 25 mcg .ROUTE .STK-MED ONE Stop: 09/03/19 08:02 Last Admin: 09/03/19 10:16 Dose: Not Given Documented by: Nalbuphine HCl (Nubain) 10 mg IVPUSH Q2H PRN PRN Reason: Pain Sodium Chloride (Saline Flush) 10 ml FLUSH ASDIRECTED PRN PRN Reason: Keep Vein Open
== END 2019-09-05 11:11 | disposition home or self-care (01) | DRG 807 ==
LOC: JD.OB 07:07 → OBSVTOIN 23:29 → JD.OB 23:30
PROVIDERS: ADMIT Obstetrics & Gynecology; ATTEND Obstetrics & Gynecology
PROC: 10E0XZZ Delivery of Products of Conception, External Approach (ICD-10-PCS; principal; 2019-09-03)
PROC: 10907ZC Drainage of Amniotic Fluid, Therapeutic from Products of Conception, Via Natural or Artificial Opening (ICD-10-PCS; 2019-09-03)
PROC: 3E0P7VZ Introduction of Hormone into Female Reproductive, Via Natural or Artificial Opening (ICD-10-PCS; 2019-09-03)
PROC: 10H07YZ Insertion of Other Device into Products of Conception, Via Natural or Artificial Opening (ICD-10-PCS; 2019-09-03)
PROC: 3E0R3BZ Introduction of Anesthetic Agent into Spinal Canal, Percutaneous Approach (ICD-10-PCS; 2019-09-03)
PROC: 00HU33Z Insertion of Infusion Device into Spinal Canal, Percutaneous Approach (ICD-10-PCS; 2019-09-03)
DX: O24.429 Gestational diabetes mellitus in childbirth, unspecified control (principal); Z37.0 Single live birth; Z3A.38 38 weeks gestation of pregnancy; Z88.6 Allergy status to analgesic agent; O99.62 Diseases of the digestive system complicating childbirth; K21.9 Gastro-esophageal reflux disease without esophagitis; O99.214 Obesity complicating childbirth; E66.9 Obesity, unspecified
CPT/HCPCS: 01967; 36415; 51702; 59025; 59409; 82565; 82570; 82947; 82962; 83615; 84156; 84450; 84460; 84520; 84550; 85025; 86592; A9270-GY; J2590; J3010; J3490; J7120; U0002

== ENCOUNTER 2021-02-18 20:39 | Emergency (ER) | payer MEDICAID, OTHER ==
--- NOTE | 2021-02-18 21:41 | EDM.PDOC ---
ED HPI GENERAL MEDICAL PROBLEM - General Chief Complaint: WHAT JOB TITLES MEAN Problem Stated Complaint: MIGHT BE Time Seen by Provider: 02/18/21 21:01 Source of Information: Reports: Patient History Limitations: Reports: No Limitations - History of Present Illness INITIAL COMMENTS - FREE TEXT/NARRATIVE: 35-year-old female presents the emergency department today requesting a pregnanc y test. Patient states she did take a home test and it was positive and she is here to confirm it. Patient states she had bariatric surgery procedure on October 05, 2020 and that is also when she had her last menstrual period. She states she is on ParaGard. She states she is feeling nauseated but has been since her bariatric surgery. Patient states she is otherwise healthy. - Related Data Allergies Allergy/AdvReac Type Severity Reaction Status Date / Time ketorolac [From Toradol] Allergy Severe Facial Verified 09/03/19 08:39 Swelling Home Meds: Home Meds Collagen Gummies 2 cap PO DAILY 02/18/21 [History] Multivit with Iron,Minerals [Complete Senior] 1 tab PO DAILY 02/18/21 [History] Past Medical History - Past Health History Medical/Surgical History: Denies Medical/Surgical History Cardiovascular History: Reports: None Respiratory History: Reports: None Gastrointestinal History: Reports: GERD WHAT JOB TITLES MEAN History: Reports: , Spontaneous Endocrine/Metabolic History: Reports: Diabetes, Gestational, Obesity/BMI 30+ Oncologic (Cancer) History: Reports: None - Infectious Disease History Infectious Disease History: Reports: Novel Coronavirus - Past Surgical History Female Surgical History: Reports: Breast Implant Social & Family History - Family History Family Medical History: No Pertinent Family History - Tobacco Use Tobacco Use Status *Q: Never Tobacco User - Caffeine Use Caffeine Use: Reports: Coffee - Recreational Drug Use Recreational Drug Use: No - Living Situation & Occupation Living situation: Reports: , with Spouse, with Family (3 kids) Occupation: Unemployed ED ROS GENERAL - Review of Systems Review Of Systems: Comprehensive ROS is negative, except as noted in HPI. ED EXAM, RENAL/ - Physical Exam Exam: See Below Exam Limited By: No Limitations General Appearance: Alert, WD/WN, No Apparent Distress Ears: Normal External Exam, Hearing Grossly Normal Nose: Normal Inspection Throat/Mouth: Normal Inspection, Normal Lips, Normal Voice, No Airway Compromise Head: Atraumatic, Normocephalic Neck: Normal Inspection, Supple Respiratory/Chest: No Respiratory Distress, No Accessory Muscle Use Cardiovascular: Normal Peripheral Pulses, Regular Rate, Rhythm GI/Abdominal: No Distention (Female) Exam: Deferred Rectal (Female) Exam: Deferred Back Exam: Normal Inspection, Full Range of Motion Extremities: Normal Inspection Neurological: Alert, Oriented, Normal Cognition Psychiatric: Normal Affect, Normal Mood Skin Exam: Warm, Dry, Intact, Normal Color, No Rash Lymphatic: No Adenopathy Course - Vital Signs Text/Narrative:: As stated above patient's presents for testing. Physical exam is otherwise unremarkable. She is hemodynamically stable. Will order urine test. Last Recorded V/S: Last Vital Signs Temp 98.0 F 02/18/21 20:59 Pulse 72 02/18/21 20:59 Resp 20 02/18/21 20:59 BP 126/81 02/18/21 20:59 Pulse Ox 97 02/18/21 20:59 - Orders/Labs/Meds Labs: Laboratory Tests 02/18/21 Range/Units 21:05 Urine HCG, Qual Positive (NEGATIVE) - Re-Assessments/Exams Free Text/Narrative Re-Assessment/Exam: 02/18/21 21:39 Urine test is positive. Discussed results with the patient. Recommend that she follow-up with her WHAT JOB TITLES MEAN as soon as possible as she states she does not know the estimated date of conception. Departure - Departure Time of Disposition: 21:40 Disposition: Home, Self-Care 01 Condition: Good Clinical Impression: Qualifiers: Weeks of gestation: unspecified Qualified Code(s): Z34.90 - Encounter for hyatt pervision of normal , unspecified, unspecified trimester - Discharge Information Referrals: Melissa Reid PA-C [Primary Care Provider] - Cassandra Ramos MD [Physician] - Additional Instructions: You were seen in the emergency department today to have a test. test is positive. Due to the fact that we are not sure of the known date of conception, recommend that you follow-up with Dr. Ramos sometime this week for further evaluation. Sepsis Event Note (ED) - Focused Exam Vital Signs: Vital Signs Temp Pulse Resp BP Pulse Ox 02/18/21 20:59 98.0 F 72 20 126/81 97
== END 2021-02-18 22:08 | disposition home or self-care (01) ==
LOC: JD.ED 20:39 → SUPCPDRO 20:39 → JD.ED 22:08
DX: O21.2 Late vomiting of pregnancy (principal); Z88.6 Allergy status to analgesic agent; Z3A.22 22 weeks gestation of pregnancy; Z98.84 Bariatric surgery status
CPT/HCPCS: 81025; 99282

== ENCOUNTER 2021-07-04 06:59 | Inpatient (IN) | payer MEDICAID ==
[~2021-07-04 06:59] MED LIST: Bupivacaine 0.25% 10 ML SDV ONE
[2021-07-04] MEDS ORDERED: Ondansetron 4 MG/2 ML SDV IVPUSH PRN (07:21)
[2021-07-04] MEDS ORDERED: Sodium Chloride 0.9% 10 ML Syringe FLUSH PRN (07:21)
[2021-07-04] MEDS ORDERED: Nalbuphine 10 MG/1 ML Vial IVPUSH PRN (07:21)
[2021-07-04] MEDS ORDERED: Acetaminophen 325 MG Tab PO PRN ×2 (07:21→19:34)
[2021-07-04] MEDS ORDERED: Oxytocin/Lactated Ringers 10 UNIT/1,000 ML BAG IV SCH ×2 (07:30)
[2021-07-04] MEDS: Lactated Ringers 1,000 ML IV SCH ×3 (08:19→16:27)
[2021-07-04] MEDS ORDERED: Sodium Chloride 0.9% 10 ML Syringe FLUSH SCH (09:00)
[2021-07-04] MEDS ORDERED: fentaNYL 100 MCG/2 ML SDV EPIDUR PRN (13:03)
[2021-07-04] MEDS ORDERED: diphenhydrAMINE 50 MG/ML SDV IVPUSH PRN (13:03)
[2021-07-04] MEDS ORDERED: Bupivacaine/fentaNYL/NS 100 ML Bag EPIDUR PRN (13:03)
[2021-07-04] MEDS ORDERED: ePHEDrine 50 MG/ML SDV IVPUSH PRN (13:03)
[2021-07-04] MEDS ORDERED: ceFAZolin 1 GM in Sodium Chloride 0.9% 50 ML IV ONE (16:15)
[2021-07-04] MEDS ORDERED: Witch Hazel Medicated Pads 40/Jar TOP PRN (19:34)
[2021-07-04] MEDS ORDERED: Ibuprofen 600 MG Tab PO PRN (19:34)
[2021-07-04] MEDS ORDERED: Benzocaine/Menthol 20%-0.5% Spray 78 GM Cannister TOP PRN (19:34)
== END 2021-07-05 19:00 | disposition home or self-care (01) | DRG 807 ==
LOC: JD.OB 06:59 → UNDOADMOB 06:59 → INTOOBSV 18:30 → OBSVTOIN 18:30 → INTOOBSV 18:33 → OBSVTOIN 18:33 → JD.OB 18:34 → OBSVTOIN 19:32 → INTOOBSV 19:32
PROVIDERS: ADMIT Obstetrics & Gynecology; ATTEND Obstetrics & Gynecology
PROC: 10E0XZZ Delivery of Products of Conception, External Approach (ICD-10-PCS; principal; 2021-07-04)
PROC: 10907ZC Drainage of Amniotic Fluid, Therapeutic from Products of Conception, Via Natural or Artificial Opening (ICD-10-PCS; 2021-07-04)
PROC: 3E0R3BZ Introduction of Anesthetic Agent into Spinal Canal, Percutaneous Approach (ICD-10-PCS; 2021-07-04)
PROC: 3E0R33Z Introduction of Anti-inflammatory into Spinal Canal, Percutaneous Approach (ICD-10-PCS; 2021-07-04)
DX: O99.214 Obesity complicating childbirth (principal); Z37.0 Single live birth; E66.9 Obesity, unspecified; Z3A.39 39 weeks gestation of pregnancy; Z86.16 Personal history of COVID-19; O69.81X0 Labor and delivery complicated by cord around neck, without compression, not applicable or unspecified
CPT/HCPCS: 36415; 51702; 59025; 59409; 85027; 86592; 86850; 86900; 86901; A9270-GY; J0690; J2590; J3010; J3490; J7120

== ENCOUNTER 2022-02-15 23:08 | Emergency (ER) | payer MEDICAID ==
[2022-02-16] MEDS ORDERED: Acetaminophen 325 MG Tab PO ONE (00:48)
== END 2022-02-16 01:05 | disposition home or self-care (01) ==
LOC: JD.ED 23:08
DX: Z48.01 Encounter for change or removal of surgical wound dressing (principal); E66.9 Obesity, unspecified; Z68.31 Body mass index [BMI] 31.0-31.9, adult; Z86.16 Personal history of COVID-19; Z88.5 Allergy status to narcotic agent
CPT/HCPCS: 99283; A9270

== ENCOUNTER 2022-07-11 19:03 | Emergency (ER) | payer MEDICAID ==
[2022-07-11 20:15] LABS: APPEARANCE,URINE CLEAR (Clear); BILIRUBIN,URINE NEGATIVE (Negative); COLOR,URINE YELLOW (Yellow); GLUCOSE,URINE NEGATIVE (Negative); KETONES,URINE NEGATIVE (Negative); LEUKOCYTE ESTERASE,URINE NEGATIVE (Negative); NITRITE,URINE NEGATIVE (Negative); OCCULT BLOOD,URINE 1+ (Negative); PROTEIN,URINE NEGATIVE (Negative)
[2022-07-11] MEDS ORDERED: Sodium Chloride 0.9% 10 ML Syringe FLUSH PRN (20:19)
[2022-07-11] MEDS ORDERED: Sodium Chloride 0.9% 1,000 ML IV STA (20:19)
[2022-07-11] MEDS ORDERED: HYDROmorphone 0.5 MG/0.5 ML Syringe IVPUSH ONE (20:19)
[2022-07-11] MEDS ORDERED: Ondansetron 4 MG/2 ML SDV IVPUSH ONE (20:19)
[2022-07-11 20:24] LABS: BACTERIA,URINE FEW /hpf (FEW); MUCUS,URINE MODERATE /hpf (FEW); RBC,URINE 0-5 /hpf (0-5); SQUAMOUS EPITHELIAL CELLS,UR 0-5 /hpf (0-5); WBC,URINE 0-5 /hpf (0-5)
[2022-07-11 20:47] LABS: BASOPHILS ABSOLUTE AUTO 0.02 K/mm3 (0.01-0.08); BASOPHILS PERCENT AUTO 0.2 % (0.1-1.2); EOSINOPHILS ABSOLUTE AUTO 0.13 K/mm3 (0.04-0.36); EOSINOPHILS PERCENT AUTO 1.4 (0.7-5.8); HEMATOCRIT 31.6 % (34.1-44.9); HEMOGLOBIN 9.8 gm/dl (11.2-15.7); IMMATURE GRAN ABSOLUTE AUTO 0.02 K/mm3 (0.00-0.10); IMMATURE GRAN PERCENT AUTO 0.2 % (<=1.0); LYMPHOCYTES ABSOLUTE AUTO 3.67 K/mm3 (1.18-3.74); LYMPHOCYTES PERCENT AUTO 40.8 % (19.3-51.7); MEAN CORPUSCULAR HEMOGLOBIN 25.1 pg (25.6-32.2); MEAN CORPUSCULAR VOLUME 80.8 fl (79.4-94.8); MEAN PLATELET VOLUME 10.2 fl (9.4-12.3); MONOCYTES ABSOLUTE AUTO 0.67 K/mm3 (0.24-0.36); MONOCYTES PERCENT AUTO 7.5 % (4.7-12.5); NEUTROPHILS ABSOLUTE AUTO 4.48 K/mm3 (1.56-6.13); NEUTROPHILS PERCENT AUTO 49.9 % (34.0-71.1); PLATELET COUNT,PLT 279 K/mm3 (182-369); RED BLOOD CELL COUNT 3.91 M/mm3 (3.98-5.22); WHITE BLOOD CELL COUNT,WBC 8.99 K/mm3 (3.98-10.04)
[2022-07-11 21:11] LABS: A/G RATIO 0.9 (1-2); ALBUMIN 3.3 g/dl (3.4-5.0); ANION GAP 11.8 (5-15); BILIRUBIN TOTAL 0.3 mg/dL (0.2-1.0); BUN/CREATININE RATIO 26.7 (14-18); CALCIUM 8.5 mg/dL (8.5-10.1); CREATININE 0.6 mg/dL (0.55-1.02); EST CRCL DRUG DOSING (CG) 127.26 mL/min; POTASSIUM,K 3.8 mEq/L (3.5-5.1); PROTEIN TOTAL,TP 6.8 g/dl (6.4-8.2)
[2022-07-12] MEDS ORDERED: Acetaminophen 325 MG Tab PO ONE (00:22)
[2022-07-12] MEDS ORDERED: cefTRIAXone 1 GM in Sodium Chloride 0.9% 100 ML IV ONE (00:34)
== END 2022-07-12 01:41 | disposition home or self-care (01) ==
LOC: JD.ED 19:03
DX: K57.32 Diverticulitis of large intestine without perforation or abscess without bleeding (principal); E66.9 Obesity, unspecified; Z68.30 Body mass index [BMI] 30.0-30.9, adult; Z88.8 Allergy status to other drugs, medicaments and biological substances; Z86.16 Personal history of COVID-19
CPT/HCPCS: 36415; 74177; 76830; 80053; 81001; 81025; 85025; 96361; 96365; 96375; 99284; A9270; J0696; J1170; J2405; J3490; J7030

== ENCOUNTER 2024-08-17 00:07 | Emergency (ER) | payer SELFPAY ==
[2024-08-17] MEDS: diphenhydrAMINE 50 MG Cap PO ONE (00:56)
[2024-08-17] MEDS: predniSONE 10 MG Tab PO ONE (00:56)
[2024-08-17] MEDS: Famotidine 20 MG Tab PO ONE (00:56)
== END 2024-08-17 01:00 | disposition home or self-care (01) ==
LOC: JD.ED 00:07
DX: L50.0 Allergic urticaria (principal); K21.9 Gastro-esophageal reflux disease without esophagitis; E66.9 Obesity, unspecified; Z68.35 Body mass index [BMI] 35.0-35.9, adult; Z86.16 Personal history of COVID-19; Z79.899 Other long term (current) drug therapy
CPT/HCPCS: 99282; A9270; J7512; Q0163; 99283